=== PATIENT | male | born 1945 | race Caucasian/White ===

== ENCOUNTER → 2016-10-10 | Outpatient (CLI) | payer OTHER, MEDICARE ==
--- NOTE | 2016-10-10 09:49 | DX ---
Right Hand 3 Views History: Pain in the second metacarpal phalangeal joint. Injury September 19. Comparison: None available. Findings: No fractures identified. Alignment is normal. Bone mineralization is normal. There is no si gnificant degenerative change. There is no focal soft tissue swelling. Impression: No acute osseous findings.
== END ==
LOC: BMCIMAGING 09:17
PROVIDERS: ATTEND Family Medicine
DX: M79.641 Pain in right hand (principal)

== ENCOUNTER 2017-05-01 19:19 | Inpatient (IN) | payer OTHER, MEDICARE ==
[2017-05-01 19:57] LABS: % IMMATURE GRANULYOCYTES 0.4 % (0.0-1.1); ABSOLUTE IMMATURE GRANULOCYTES 0.03 10^3/uL (0.00-0.10); ADD DIFF? NO; ADD MORPH? NO; ADD SCAN? NO; ATYPICAL LYMPHOCYTE FLAG 10 (0-99); FRAGMENT RBC FLAG 0 (0-99); HEMATOCRIT 49.6 % (40.0-51.0); HEMOGLOBIN 16.7 g/dL (13.7-17.5); LEFT SHIFT FLG 0 (0-99); LIPEMIA HEMOLYSIS FLAG 80 (0-99); MEAN CELL HEMOGLOBIN 32.7 pg (27.9-34.1); MEAN CELL HEMOGLOBIN CONCENTR. 33.7 g/dL (32.4-36.7); MEAN CELL VOLUME 97.1 fL (81.5-99.8); MEAN PLATELET VOLUME 10.1 fL (8.7-11.7); PLATELET CLUMPS FLAG 0 (0-99); PLATELET COUNT 130 10^3/uL (150-400); RED BLOOD CELL COUNT 5.11 10^6/uL (4.40-6.38); RED CELL DISTRIBUTION WIDTH 14.3 % (11.5-15.2)
--- NOTE | 2017-05-01 19:59 | CPEKG ---
Heart Rate: 83 RR Interval: 723 P-R Interval: 228 QRSD Interval: 86 QT Interval: 392 QTC Interval: 461 P [place]: 0 QRS [place]: 63 T Wave [place]: 77 EKG Severity - ABNORMAL ECG - EKG Impression: SINUS RHYTHM EKG Impression: FIRST DEGREE AV BLOCK Electronically Signed By: Kevin Hastings 01-May-2017 22:41:12
[2017-05-01 20:07] LABS: INR 0.91 (0.83-1.16); PROTIME(PATIENT) 12.2 SEC (12.0-15.0)
[2017-05-01 20:08] LABS: APTT 29.2 SEC (23.0-38.0)
[2017-05-01 20:11] LABS: ALANINE AMINOTRANSFERASE 31 IU/L (21-72); ALBUMIN 4.5 g/dL (3.5-5.0); ALKALINE PHOSPHATASE 86 IU/L (38-126); ANION GAP 13 mEq/L (8-16); ASPARTATE AMINOTRANSFERASE 25 IU/L (17-59); BILIRUBIN,TOTAL 0.9 mg/dL (0.1-1.4); BILIRUBIN-CONJUGATED 0.3 mg/dL (0.0-0.5); BILIRUBIN-UNCONJUGATED 0.6 mg/dL (0.0-1.1); CALCIUM 9.8 mg/dL (8.5-10.4); CARBON DIOXIDE 26 mEq/l (22-31); CHLORIDE 100 mEq/L (97-110); CREATININE 1.5 mg/dL (0.7-1.3); GLOMERULAR FILTRATION RATE 46; GLUCOSE 91 mg/dL (70-100); MAGNESIUM 2.2 mg/dL (1.6-2.3); POTASSIUM 4.1 mEq/L (3.5-5.2); SODIUM 139 mEq/L (134-144); TOTAL PROTEIN 7.2 g/dL (6.3-8.2)
--- NOTE | 2017-05-01 20:15 | EDPHY ---
H & P Stated Complaint: mental status changes over the last 3 months, very emotional HPI/ROS: CHIEF COMPLAINT: Possible stroke HISTORY OF PRESENT ILLNESS: Patient complains of intermittent symptoms that include "mental lapse," difficulty thinking and speaking and difficulty performing is work tasks. These have happened intermittently over the past few days. Most recently this morning. They last 10-15 minutes and resolved spontaneously. During that time he has no headache but he does have some clouded train of thought and dizziness. He has not had any chest pain of any kind. No shortness of breath. No unilateral complaints. No reports of facial droop or slurred speech from those around him. No predictable modifying factors for this. No previous incidence of TIA or stroke. No previous incidence of coronary artery disease or hypertension. No other associated complaints or modifying factors. REVIEW OF SYSTEMS: Ten systems reviewed and are negative unless otherwise noted in the HPI PAST MEDICAL HISTORY: Reviewed SOCIAL HISTORY: Smoker. Drinks 2-3 alcoholic drinks per evening FAMILY HISTORY: Noncontributory EXAMINATION General Appearance: Alert, no distress Head: normocephalic, atraumatic Eyes: Pupils equal and round, no conjunctival pallor or injection. Bilateral arcus senilis. EOMs intact. No nystagmus or dysconjugate gaze ENT, Mouth: Mucous membranes moist. Uvula midline. Airway patent Neck: Normal inspection, supple, non-tender. Painless range of motion all planes Respiratory: Lungs are clear to auscultation. No wheezing, rhonchi or crackles Cardiovascular: Regular rate and rhythm. No murmur. Pulses intact distally Gastrointestinal: Abdomen is soft and nontender Back: non-tender, no bony abnormalities Neurological: GCS 15. Cranial nerves 2-12 grossly intact. A&O, nonfocal. Strength is symmetric in all 4 limbs. No pronator drift. No dysmetria. NIH stroke scale: 0 Skin: Warm and dry, no rash Extremities: Nontender, no pedal edema Psychiatric: Mood and affect normal DIFFERENTIAL DIAGNOSES: Including but not limited to TIA, CVA, tardive dyskinesia, dehydration, neuropathy MDM: 7:50 p.m. Mild, vague neuro complaints over the past few days. No stroke-like symptoms at time of examination. I have ordered CVA workup, but he is not a stroke alert as he has a negative stroke scale at this time. Vital signs are stable. Laboratory studies, CT scan, EKG and chest x-ray pending. I discussed case with Dr. Hastings he will evaluate the patient. 8:20 p.m. Notified by radiologist Dr. Rios. CT scan of the head reveals possible new left temporal mass with vasogenic edema. He recommends MRI without and with contrast for further delineation. This has been ordered. He remains awake alert no acute distress. No focal deficits. 8:30 p.m. Case discussed with neurosurgery RADHA Duncan. We discussed the presence of the mass in the the patient is obtaining MRI. No further question the patient at this time. He will review the images with the on-call neurosurgeon him return our call. 8:54 p.m. Case discussed again with neurosurgery RADHA Shoemaker. Dr. Montiel has reviewed the imaging. At this time they have ordered Decadron IV and Keppra to be administered IV. They will provide consultation for the patient hospital admission. No further recommendations at this time. He informed me that he is comfortable with the patient be admitted to a medical-surgical bed with telemetry. 9:50 p.m. Patient has returned from MRI. No seizure-like activity. No stroke-like activity. Proceed with admission to the hospital. He has received Keppra, Decadron and IV fluid resuscitation. 10:05 p.m. Notified by radiologist Dr. Rios. MRI findings suggest the possibility of transition from benign to metastatic process. Findings that were documented in the report have been reviewed. 10:20 p.m. I discussed the case again with neurosurgery RADAH Duncan. He is now where the MRI and findings. He informs that they will evaluate the patient 1st thing in the morning. 10:30 p.m. Discussed case with hospitalist Dr. Guillory. He will admit the patient to his service. The patient is admitted in stable condition. He is admitted to a medical-surgical bed with telemetry and q.4 hours neuro checks. At time of admission he has no neuro deficits. He has no seizure-like activity. He is resting comfortably in no acute distress. Patient is not a tPA candidate as he does not exhibit any signs or symptoms of stroke at this time. Stroke scale 0. SUPERVISION: Patient was evaluated in conjunction with the supervising physician. Please see their note for details. 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 - Social History Smoking Status: Heavy smoker Constitutional: Initial Vital Signs Temperature (C) 98.6 F 05/01/17 19:23 Heart Rate 92 05/01/17 19:23 Respiratory Rate 20 05/01/17 19:23 Blood Pressure 133/91 H 05/01/17 19:23 O2 Sat (%) 94 05/01/17 19:23 O2 Delivery Mode Room Air Allergies/Adverse Reactions: No Known Allergies Allergy (Unverified 03/13/11 21:28) Home Medications: Medication Instructions Recorded ALPRAZolam [Xanax 0.25 MG (*)] 0.125 mg PO DAILY PRN 01/02/16 Multivitamins [Multivitamin (*)] 1 tab PO DAILY 01/02/16 Psyllium Husk (with Sugar) 1 each PO DAILY 01/02/16 [Metamucil Packet] Budesonide/Formoterol 160/4.5 2 puffs IH BID #1 mdi 01/07/16 [Symbicort 160-4.5 Mcg Inh (*)] Medical Decision Making - Diagnostics Imaging Results: Imaging Impressions Chest X-Ray 05/01/17 19:43 Impression: 1. No acute pulmonary disease. 2. Consider chest two views when the patient's medical condition permits. Head CT 05/01/17 19:51 Impression: 1. Left temporal lobe vasogenic edema, with resulting rightward subfalcine herniation, midline shift, suspicious for a left temporal lobe neoplasm or metastasis. 2. Previous left temporal lobe meningioma is also subtly noted but is not the cause of the left temporal lobe vasogenic edema. 3. No acute hemorrhage or hydrocephalus. Recommendation: MRI brain, without and with contrast enhancement. Findings and recommendations discussed with Emergency Department Jamshid Prasad PA-C, at 2026 hours, on May 01, 2017. Final report concurs with initial preliminary interpretation. Brain MRI 05/01/17 20:23 Impression: 1. Left frontal temporal parasylvian extraaxial heterogenous enhancing 4.4- x 1.8- x 5-cm mass, with dural tail, causing left temporal lobe edema and rightward subfalcine herniation suspicious for malignant transformation of a meningioma. 2. Rightward subfalcine herniation 10 mm. 3. No acute infarct, acute hemorrhage, or hydrocephalus. 4. Moderate microvascular ischemic gliosis in the white matter. Findings and recommendations discussed with Emergency Department Jamshid Prasad PA-C, at 2213 hours, on May 01, 2017. Final report concurs with initial preliminary interpretation. - Data Points Laboratory Results: Laboratory Results 05/01/17 19:40 05/01/17 19:40 05/01/17 05/01/17 05/01/17 19:40 19:40 19:40 WBC 7.16 10^3/uL 10^3/uL (3.80-9.50) RBC 5.11 10^6/uL 10^6/uL (4.40-6.38) Hgb 16.7 g/dL g/dL (13.7-17.5) POC Hgb Hct 49.6 % % (40.0-51.0) POC Hct MCV 97.1 fL fL (81.5-99.8) MCH 32.7 pg pg (27.9-34.1) MCHC 33.7 g/dL g/dL (32.4-36.7) RDW 14.3 % % (11.5-15.2) Plt Count 130 10^3/uL L 10^3/uL (150-400) MPV 10.1 fL fL (8.7-11.7) Neut % (Auto) 50.3 % % (39.3-74.2) Lymph % (Auto) 32.1 % % (15.0-45.0) [place] % (Auto) 12.3 % % (4.5-13.0) Eos % (Auto) 4.1 % % (0.6-7.6) Baso % (Auto) 0.8 % % (0.3-1.7) Nucleat RBC Rel Count 0.0 % % (0.0-0.2) Absolute Neuts (auto) 3.60 10^3/uL 10^3/uL (1.70-6.50) Absolute Lymphs (auto) 2.30 10^3/uL 10^3/uL (1.00-3.00) Absolute Monos (auto) 0.88 10^3/uL H 10^3/uL (0.30-0.80) Absolute Eos (auto) 0.29 10^3/uL 10^3/uL (0.03-0.40) Absolute Basos (auto) 0.06 10^3/uL 10^3/uL (0.02-0.10) Absolute Nucleated RBC 0.00 10^3/uL 10^3/uL (0-0.01) Immature Gran % 0.4 % % (0.0-1.1) Immature Gran # 0.03 10^3/uL 10^3/uL (0.00-0.10) PT 12.2 SEC SEC (12.0-15.0) INR 0.91 (0.83-1.16) APTT 29.2 SEC SEC (23.0-38.0) POC Sodium Sodium 139 mEq/L mEq/L (134-144) POC Potassium Potassium 4.1 mEq/L mEq/L (3.5-5.2) POC Chloride Chloride 100 mEq/L mEq/L (97-110) Carbon Dioxide 26 mEq/l mEq/l (22-31) Anion Gap 13 mEq/L mEq/L (8-16) POC BUN BUN 17 mg/dL mg/dL (7-23) Creatinine 1.5 mg/dL H mg/dL (0.7-1.3) POC Creatinine Estimated GFR 46 Glucose 91 mg/dL mg/dL (70-100) POC Glucose Calcium 9.8 mg/dL mg/dL (8.5-10.4) Magnesium 2.2 mg/dL mg/dL (1.6-2.3) Total Bilirubin 0.9 mg/dL mg/dL (0.1-1.4) Conjugated Bilirubin 0.3 mg/dL mg/dL (0.0-0.5) Unconjugated Bilirubin 0.6 mg/dL mg/dL (0.0-1.1) AST 25 IU/L IU/L (17-59) ALT 31 IU/L IU/L (21-72) Alkaline Phosphatase 86 IU/L IU/L (38-126) Troponin I < 0.012 ng/mL ng/mL (0.000-0.034) NT-Pro-B Natriuret Pep 373 pg/mL H pg/mL (0-125) Total Protein 7.2 g/dL g/dL (6.3-8.2) Albumin 4.5 g/dL g/dL (3.5-5.0) Lipase 109 IU/L IU/L (23-300) 05/01/17 19:39 WBC RBC Hgb POC Hgb 17.7 gm/dL H gm/dL (13.7-17.5) Hct POC Hct 52 % H % (40-51) MCV MCH MCHC RDW Plt Count MPV Neut % (Auto) Lymph % (Auto) [place] % (Auto) Eos % (Auto) Baso % (Auto) Nucleat RBC Rel Count Absolute Neuts (auto) Absolute Lymphs (auto) Absolute Monos (auto) Absolute Eos (auto) Absolute Basos (auto) Absolute Nucleated RBC Immature Gran % Immature Gran # PT INR APTT POC Sodium 141 mEq/L mEq/L (134-144) Sodium POC Potassium 3.8 mEq/L mEq/L (3.3-5.0) Potassium POC Chloride 99 mEq/L mEq/L (97-110) Chloride Carbon Dioxide Anion Gap POC BUN 17 mg/dL mg/dL (7-23) BUN Creatinine POC Creatinine 1.6 mg/dL H mg/dL (0.7-1.3) Estimated GFR Glucose POC Glucose 96 mg/dL mg/dL (70-100) Calcium Magnesium Total Bilirubin Conjugated Bilirubin Unconjugated Bilirubin AST ALT Alkaline Phosphatase Troponin I NT-Pro-B Natriuret Pep Total Protein Albumin Lipase Medications Given: Dexamethasone (Decadron Injection) 4 mg IVP Q6 RIVKA Stop: 10/29/17 00:00 Last Admin: 05/02/17 00:07 Dose: 4 mg Discontinued Medications Dexamethasone (Decadron Injection) 10 mg IVP EDNOW ONE Stop: 05/01/17 20:35 Last Admin: 05/01/17 20:44 Dose: 10 mg Sodium Chloride (Ns) 1,000 mls @ 0 mls/hr IV ONCE ONE; Wide Open PRN Reason: Protocol Stop: 05/01/17 20:26 Last Admin: 05/01/17 20:31 Dose: 1,000 mls Levetiracetam 1,000 mg/ Sodium (Chloride) 110 mls @ 440 mls/hr IV EDNOW ONE Stop: 05/01/17 20:48 Last Admin: 05/01/17 20:45 Dose: 110 mls Levetiracetam 750 mg/ Sodium (Chloride) 107.5 mls @ 420 mls/hr IV BID RIVKA Stop: 10/28/17 20:59 Last Admin: 05/01/17 21:24 Dose: Not Given Nicotine (Nicoderm Cq) 21 mg TD ONCE ONE Stop: 05/02/17 00:16 Last Admin: 05/02/17 00:07 Dose: 21 mg Point of Care Test Results: 05/01/17 19:39 POC Sodium 141 POC Potassium 3.8 POC Chloride 99 POC BUN 17 POC Creatinine 1.6 H POC Glucose 96 Departure - Departure Disposition: [facility] Acute Clinical Impression: Mass of left temporal lobe, Mental status change resolved Condition: Good
[2017-05-01 20:22] LABS: TROPONIN I < 0.012 ng/mL (0.000-0.034)
[2017-05-01] MEDS ORDERED: NS 1,000 ML IV ONE (20:25)
[2017-05-01] MEDS ORDERED: levETIRAcetam 1,000 MG in NS 100 ML IV ONE (20:34)
[2017-05-01] MEDS ORDERED: DEXAMETHASONE 10 MG/ML VIAL IVP ONE (20:34)
[2017-05-01] MEDS ORDERED: levETIRAcetam 750 MG in NS 100 ML IV SCH (21:00)
[2017-05-01] MEDS ORDERED: GADOBUTROL 10 ML VIAL IVP ONE (21:08)
[2017-05-01] MEDS ORDERED: ACETAMINOPHEN 325 MG TAB PO PRN (23:02)
[2017-05-01] MEDS ORDERED: ONDANSETRON 4 MG/2 ML VIAL IVP PRN (23:02)
[2017-05-01] MEDS ORDERED: ONDANSETRON DISINTEGRATING 4 MG TAB PO PRN (23:02)
--- NOTE | 2017-05-01 23:13 | PDGENHP ---
History and Physical - Chief Complaint Forgetfulness - History of Present Illness 71 yo M w/ COPD and hx of anxiety presents with increasingly frequent episodes of forgetfulness. Patient reports he first noticed these episodes about 6 months ago. Over the last month, they have occurred 2-3x weekly. He describes the episodes as "anxiety attacks". During these spells, which are often triggered by j luis morel, he becomes forgetful and somewhat frozen. He has difficulty describing the episodes well. The reason he came to the ED for further evaluation was that his girlfriend noticed that he was dysarthric during one of these spells. On my evaluation, he has no persistent symptoms or deficits. He denies post-ictal confusion, shaking movements, and loss of bowel or bladder control during the events. History Information - Allergies/Home Medication List Allergies/Adverse Reactions: No Known Allergies Allergy (Unverified 03/13/11 21:28) Home Medications: ALPRAZolam [Xanax 0.25 MG (*)] 0.125 mg PO DAILY PRN 01/02/16 [Last Taken ] Multivitamins [Multivitamin (*)] 1 tab PO DAILY 01/02/16 [Last Taken 01/02/16 08 :00] Psyllium Husk (with Sugar) [Metamucil Packet] 1 each PO DAILY 01/02/16 [Last Taken 01/02/16 08:00] I have personally reviewed and updated: family history, medical history - Past Medical History COPD Additional medical history: Anxiety - Family History Additional family history: Denies family hx of brain cancer - Social History Smoking Status: Heavy smoker (1 PPD) Tobacco Use: Greater than 1 pack/day Alcohol Use: Other (3-4 drinks daily x50 years, denies prior hx of withdrawal) Drug Use: None Review of Systems ROS: 10pt was reviewed & negative except for what was stated in HPI & below Physical Exam Temp Pulse Resp BP Pulse Ox 36.9 C 72 18 147/82 H 94 05/01/17 22:53 05/01/17 22:53 05/01/17 22:53 05/01/17 22:53 05/01/17 22:53 Constitutional: no apparent distress, appears nourished Eyes: PERRL, EOMI Ears, Nose, Mouth, Throat: moist mucous membranes, no oral mucosal ulcers Cardiovascular: regular rate and rhythym, other (distant heart sounds) Respiratory: no respiratory distress, expiratory wheeze (Faint, diffuse) Gastrointestinal: normoactive bowel sounds, soft, non-tender abdomen Skin: warm, normal color Musculoskeletal: full muscle strength, no muscle tenderness Neurologic: AAOx3, sensation intact bilaterally, CN II-XII Intact, other ( cerebellar function intact), No weakness, No numbness, No facial droop Psychiatric: interacting appropriately, not anxious Lab Data & Imaging Review 05/01/17 19:40 05/01/17 19:40 WBC 7.16 10^3/uL (3.80-9.50) 05/01/17 19:40 RBC 5.11 10^6/uL (4.40-6.38) 05/01/17 19:40 Hgb 16.7 g/dL (13.7-17.5) 05/01/17 19:40 POC Hgb 17.7 gm/dL (13.7-17.5) H 05/01/17 19:39 Hct 49.6 % (40.0-51.0) 05/01/17 19:40 POC Hct 52 % (40-51) H 05/01/17 19:39 MCV 97.1 fL (81.5-99.8) 05/01/17 19:40 MCH 32.7 pg (27.9-34.1) 05/01/17 19:40 MCHC 33.7 g/dL (32.4-36.7) 05/01/17 19:40 RDW 14.3 % (11.5-15.2) 05/01/17 19:40 Plt Count 130 10^3/uL (150-400) L 05/01/17 19:40 MPV 10.1 fL (8.7-11.7) 05/01/17 19:40 Neut % (Auto) 50.3 % (39.3-74.2) 05/01/17 19:40 Lymph % (Auto) 32.1 % (15.0-45.0) 05/01/17 19:40 [place] % (Auto) 12.3 % (4.5-13.0) 05/01/17 19:40 Eos % (Auto) 4.1 % (0.6-7.6) 05/01/17 19:40 Baso % (Auto) 0.8 % (0.3-1.7) 05/01/17 19:40 Nucleat RBC Rel Count 0.0 % (0.0-0.2) 05/01/17 19:40 Absolute Neuts (auto) 3.60 10^3/uL (1.70-6.50) 05/01/17 19:40 Absolute Lymphs (auto) 2.30 10^3/uL (1.00-3.00) 05/01/17 19:40 Absolute Monos (auto) 0.88 10^3/uL (0.30-0.80) H 05/01/17 19:40 Absolute Eos (auto) 0.29 10^3/uL (0.03-0.40) 05/01/17 19:40 Absolute Basos (auto) 0.06 10^3/uL (0.02-0.10) 05/01/17 19:40 Absolute Nucleated RBC 0.00 10^3/uL (0-0.01) 05/01/17 19:40 Immature Gran % 0.4 % (0.0-1.1) 05/01/17 19:40 Immature Gran # 0.03 10^3/uL (0.00-0.10) 05/01/17 19:40 PT 12.2 SEC (12.0-15.0) 05/01/17 19:40 INR 0.91 (0.83-1.16) 05/01/17 19:40 APTT 29.2 SEC (23.0-38.0) 05/01/17 19:40 POC Sodium 141 mEq/L (134-144) 05/01/17 19:39 Sodium 139 mEq/L (134-144) 05/01/17 19:40 POC Potassium 3.8 mEq/L (3.3-5.0) 05/01/17 19:39 Potassium 4.1 mEq/L (3.5-5.2) 05/01/17 19:40 POC Chloride 99 mEq/L (97-110) 05/01/17 19:39 Chloride 100 mEq/L (97-110) 05/01/17 19:40 Carbon Dioxide 26 mEq/l (22-31) 05/01/17 19:40 Anion Gap 13 mEq/L (8-16) 05/01/17 19:40 POC BUN 17 mg/dL (7-23) 05/01/17 19:39 BUN 17 mg/dL (7-23) 05/01/17 19:40 Creatinine 1.5 mg/dL (0.7-1.3) H 05/01/17 19:40 POC Creatinine 1.6 mg/dL (0.7-1.3) H 05/01/17 19:39 Estimated GFR 46 05/01/17 19:40 Glucose 91 mg/dL (70-100) 05/01/17 19:40 POC Glucose 96 mg/dL (70-100) 05/01/17 19:39 Calcium 9.8 mg/dL (8.5-10.4) 05/01/17 19:40 Magnesium 2.2 mg/dL (1.6-2.3) 05/01/17 19:40 Total Bilirubin 0.9 mg/dL (0.1-1.4) 05/01/17 19:40 Conjugated Bilirubin 0.3 mg/dL (0.0-0.5) 05/01/17 19:40 Unconjugated Bilirubin 0.6 mg/dL (0.0-1.1) 05/01/17 19:40 AST 25 IU/L (17-59) 05/01/17 19:40 ALT 31 IU/L (21-72) 05/01/17 19:40 Alkaline Phosphatase 86 IU/L (38-126) 05/01/17 19:40 Troponin I < 0.012 ng/mL (0.000-0.034) 05/01/17 19:40 NT-Pro-B Natriuret Pep 373 pg/mL (0-125) H 05/01/17 19:40 Total Protein 7.2 g/dL (6.3-8.2) 05/01/17 19:40 Albumin 4.5 g/dL (3.5-5.0) 05/01/17 19:40 Lipase 109 IU/L (23-300) 05/01/17 19:40 Imaging Review: Brain MRI w/ L frontal, temporal mass with associated edema and herniation. Visualized and Interpreted Chest x-ray results: Yes Chest X-Ray results: no infiltrate EKG Interpretation: Positive for: normal sinsus rhythm Assessment & Plan Assessment: 71 yo M w/ COPD and hx of anxiety presents with spells of forgetfulness and found to have progression of L frontal meningioma on imaging. Plan: 1. L frontal, temporal mass - With cerebral edema and herniation noted on brain MRI. Per radiology, suspicious for malignant transformation of known meningioma. Unclear if this is responsible for presenting symptoms, but definitely possible. Unremarkable neurologic exam on admission. - S/p dexamethasone and Keppra in ED - Continue dexamethasone 4 mg IV q6h and Keppra 750 mg IV q12h - Neurosurgery consulted, will evaluate patient in the morning - q4h neuro checks, NPO @ [place] 2. Episodes of forgetfulness - Could be consistent with TIA's noting dysarthria noted by girlfriend during one of these episodes. However, this seems less likely noting episodes have been occurring for >6 months without residual neurologic deficits or clear evidence of prior stroke on MRI. These episodes could be consistent with focal temporal lobe seizures noting above. - Acute management of mass as above - Monitor on telemetry, may benefit from full TIA work-up after management of acute issue 3. COPD - Faint wheezing noted on admission but no evidence of acute exacerbation. Patient is a heavy daily smoker. Albuterol PRN 4. Tobacco dependence - 1 PPD x50 years; will order nicotine patch 5. ETOH abuse - 3-4 drinks daily for 50 years, no hx of withdrawal. Diet - NPO @ [place] Ppx - SCDs noting possible surgical intervention Code - Full Dispo - Admit to inpatient for neurosurgical evaluation
[2017-05-01 23:20] VITALS: TEMP 97.9
[2017-05-02] MEDS: DEXAMETHASONE 4 MG/ML VIAL IVP SCH ×2 (00:07→05:58)
[2017-05-02] MEDS ORDERED: NICOTINE 21 MG/24 HR PATCH TD ONE (00:15)
[2017-05-02 04:54] LABS: % IMMATURE GRANULYOCYTES 0.6 % (0.0-1.1); ABSOLUTE IMMATURE GRANULOCYTES 0.02 10^3/uL (0.00-0.10); ADD DIFF? NO; ADD MORPH? NO; ADD SCAN? NO; ATYPICAL LYMPHOCYTE FLAG 0 (0-99); FRAGMENT RBC FLAG 0 (0-99); HEMOGLOBIN 15.9 g/dL (13.7-17.5); LEFT SHIFT FLG 10 (0-99); LIPEMIA HEMOLYSIS FLAG 90 (0-99); MEAN CELL HEMOGLOBIN 32.6 pg (27.9-34.1); MEAN CELL HEMOGLOBIN CONCENTR. 33.8 g/dL (32.4-36.7); MEAN CELL VOLUME 96.5 fL (81.5-99.8); MEAN PLATELET VOLUME 9.7 fL (8.7-11.7); PLATELET CLUMPS FLAG 10 (0-99); PLATELET COUNT 116 10^3/uL (150-400); RED BLOOD CELL COUNT 4.87 10^6/uL (4.40-6.38); RED CELL DISTRIBUTION WIDTH 14.1 % (11.5-15.2)
[2017-05-02 05:40] LABS: ANION GAP 11 mEq/L (8-16); CARBON DIOXIDE 23 mEq/l (22-31); CHLORIDE 106 mEq/L (97-110); CREATININE 1.2 mg/dL (0.7-1.3); GLOMERULAR FILTRATION RATE 60; GLUCOSE 137 mg/dL (70-100); MAGNESIUM 1.9 mg/dL (1.6-2.3); POTASSIUM 4.7 mEq/L (3.5-5.2); SODIUM 140 mEq/L (134-144)
[2017-05-02 07:35] VITALS: BP 149/97; PULSE 96; RESP 23; O2SAT 93
[2017-05-02] MEDS ORDERED: ALPRAZolam 0.25 MG TAB PO PRN (07:45)
[2017-05-02] MEDS ORDERED: TRIAMCINOLONE 0.1% 15 GM CRTUBE TP PRN (07:45)
[2017-05-02] MEDS ORDERED: FLUTICASONE/SALMETER 250/50MCG DISKUS IH PRN (07:45)
[2017-05-02] MEDS ORDERED: FLUOCINONIDE 0.05% 15 GM OINTMENT TP PRN (07:45)
--- NOTE | 2017-05-02 08:50 | HOSPPROG ---
Hospitalist Progress Note Assessment/Plan: Patient is a 71 yo M w/ COPD and hx of anxiety presents with spells of forgetfulness and found to have progression of L frontal meningioma on imaging. * left frontal temporal mass/hx of this Has some cerebral edema and herniation on the MRI Met with the patient with Dr. 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 Subjective: Lenard is anxious/wants a cigarette. Objective: Vital Signs Temp Pulse Resp BP Pulse Ox 36.6 C 96 23 H 149/97 H 93 05/02/17 07:30 05/02/17 07:30 05/02/17 07:30 05/02/17 07:30 05/02/17 07:30 Laboratory Results 05/02/17 04:30 05/02/17 04:30 05/01/17 05/02/17 05/03/17 05:59 05:59 05:59 Intake Total 1000 Output Total 400 Balance 600 PT 12.2 SEC (12.0-15.0) 05/01/17 19:40 INR 0.91 (0.83-1.16) 05/01/17 19:40 - Physical Exam Constitutional: appears nourished, not in pain Eyes: PERRL, scleral injection Ears, Nose, Mouth, Throat: hearing normal Cardiovascular: regular rate and rhythym Respiratory: no respiratory distress, reduced air movement Gastrointestinal: normoactive bowel sounds Skin: warm Musculoskeletal: full muscle strength Neurologic: AAOx3, other (impulsive) Psychiatric: interacting appropriately, anxious ICD10 Worksheet Patient Problems: Problems Problem Status Onset Mass of left temporal lobe Acute Mental status change resolved Acute COPD (chronic obstructive pulmonary disease) Acute Chronic Disease Mgmt/Transitional Care Acute
[2017-05-02] MEDS ORDERED: NICOTINE 21 MG/24 HR PATCH TD SCH (09:00)
[2017-05-02] MEDS ORDERED: MULTIVITAMINS 1 EACH TAB PO SCH (09:00)
[2017-05-02] MEDS ORDERED: PSYLLIUM METAMUCIL 1 PKT PO SCH (09:00)
[2017-05-02] MEDS: levETIRAcetam 750 MG in NS 100 ML IV SCH ×2 (09:22→10:34)
--- NOTE | 2017-05-02 09:28 | GCON ---
[f rep st] CONSULTATION NEUROSURGERY CONSULTATION CHIEF COMPLAINT: Brain mass and episodes of confusion. HISTORY OF PRESENT ILLNESS: The patient is a 71-year-old male patient, who presented to the emergency room yesterday evening, he complained of intermittent symptoms, included a mental lapse, with difficulty thinking and speaking. He states if he has heard a news story on the radio and then hears it a second time, he has this episode of j luis vu that comes over him, and he states he does not exactly blank, out but he is unable to think clearly. These events have lasted for about 10-15 minutes and resolve spontaneously. It recently happened to him in a restaurant, and he states he had to get up suddenly and leave because he was embarrassed, he did, however, remember to pay the bill. Currently, the patient is resting in bed. He denies a headache. He has had some severe left ear drum pain, that he had approximately 3 years ago. He has had some recurrence of this, but it is currently not present. He denies any shortness of breath, nausea, vomiting. No slurred speech. He states he does not believe he has had any seizures. After admission to the emergency room, the patient underwent a CT of the head, which demonstrated some vasogenic edema in the left temporal lobe with midline shift. This is compared to an MRI from 2012, where he had a known left temporal lobe meningioma. He then underwent MRI of the brain without contrast, which was suspicious for a malignant transformation of his prior known meningioma. He was subsequently admitted to the hospitalist service for further workup. He was given antiseizure medication and steroids. The neurosurgery service is subsequently consulted for definitive management. REVIEW OF SYSTEMS: Please see the above-mentioned in the HPI. ALLERGIES: Patient has no known drug allergies. HOME MEDICATIONS: Include Xanax, multivitamin, and Metamucil. PAST MEDICAL HISTORY: Significant for COPD. FAMILY HISTORY: The patient is the youngest of 9 siblings, he states that many of his siblings have had various illnesses, he also reports that he has a nephew who had some type of brain mass, it sounds like it was near the optic chiasm and was resected. SOCIAL HISTORY: The patient is a heavy smoker, smokes about 1 pack per day. He states he has cocktail hour every evening from 5:30 to 7:30, but denies heavy drinking. 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 PHYSICAL EXAMINATION: VITAL SIGNS: Blood pressure 149/97, heart rate 96, respirations 23, O2 saturation 93% on 2 L of oxygen via nasal cannula, temperature is 36.6. GENERAL: This is a well-developed, well-nourished male patient, in no acute distress. HEAD: Normocephalic and atraumatic. NEURO: Cranial nerves 2-12 were grossly intact. Patient's eyes are PERRLA. His extraocular movements are intact. Sclerae are anicteric. He has intact sensation of his face, his facial movements are symmetric without facial droop noted. His tongue protrudes midline. He has intact hearing to light finger scratch bilaterally. He has a symmetric shoulder shrug bilaterally. Motor examination of bilateral extremities is 5/5 for deltoid, triceps, biceps, and hand supervising broker, and also 5/5 for bilateral lower extremities, including hip flexion , flexion of the knee, plantar and dorsiflexion. He has 2+ bilateral patellar reflexes. Negative Babinski. He has intact sensation throughout the normal dermatomal distribution of his body. Of note, during our conversation he did have a few missed consonance in his speech, for example when he tried to say [facility], he said [facility]. LABORATORY: White blood cell is 3.20, red blood cells 4.87, hemoglobin 15.9, hematocrit 47.0, MCV is 96, MCH is 32.6, RDW is 14.1, platelet count 116. PT 12.2, INR 0.91, APTT is 29.2. Sodium is 140, potassium 4.7, chloride 106, carbon dioxide 23, anion gap 11, BUN 16, creatinine 1.2. GFR 60, glucose 137, calcium 9.0, phosphorus 3.4, magnesium 1.9. Bilirubin 0.9, conjugated bilirubin 0.3, unconjugated 0.6, AST is 25, ALT is 31, alk phos is 86. Troponin less than 0.012. BNP is 3073. Total protein 7.2, albumin 4.5, lipase 109. IMAGING: Chest x-ray: No acute pulmonary disease. Electrocardiogram: Sinus rhythm with first-degree AV block. Head CT: Left temporal lobe vasogenic edema with resulting rightward subfalcine herniation, midline shift, suspicious for left a temporal lobe neoplasm or metastasis. Previous left temporal lobe meningioma is also subtly noted, but is not the cause of the left temporal lobe vasogenic edema. No acute hemorrhage or hydrocephalus. MRI of the brain: Left frontal temporal perisylvian extra-axial heterogeneous enhancing 4.4 x 1.8 x 5 cm mass with dural tail, causing left temporal lobe edema and rightward subfalcine herniation, suspicious for malignant transformation of meningioma, rightward subfalcine herniation 10 mm. No acute infarct, acute hemorrhage, or hydrocephalus, moderate microvascular ischemic gliosis in the white matter. IMPRESSION: This is a 71-year-old male patient with known prior left temporal meningioma, now with worsening edema and shift noted on the MRI. He has had some confusion associated with this as well. PLAN: I have seen and examined the patient in his room today, and we will discuss the patient with Dr. Montiel, who will be in to see the patient in a few hours, today. I discussed with the patient that we have placed him on Keppra and also some Decadron to help with the swelling and reduce the likelihood of him having a seizure. I discussed with them that typically the definitive management for this would be resection and analysis of the tumor tissue, and this will guide further treatment. The patient states he would like to think about his options some more, and await discussion with Dr. Montiel later today before he makes a decision. The patient was in agreement and understanding of the plan and all of his questions were answered. Neurosurgery will continue to follow along with this patient. /[id number]/MODL MTDD
[2017-05-02] MEDS ORDERED: levETIRAcetam 250 MG TAB PO SCH (11:15)
[2017-05-02] MEDS ORDERED: DEXAMETHASONE 4 MG TAB PO SCH (12:00)
--- NOTE | 2017-05-02 12:15 | ECHO ---
[id number] + + [address] : : [place] [address] : : [phone] + + Adult Echocardiographic Report + + :Name: MINDI HUTSON MStudy Date: 05/02/2017 10:23 AM : : Hospital Admission Number: [id number] Loc ation: 347: :: 1945 Gender: Male Height: 73 in : :Age: 71 yrs Race: WH Weight: 179 lb : :Reason For Study: Eval LV Fx : : BSA: 2.1 me ters2 : :History: Pre Op Brain Surgery, Hx of COPD, Dyspnea : + + MMode/2D Measurements \T\ Calculations IVSd: 1.1 cm LVIDd: 4.9 cm FS: 41.1 % Ao root diam: 3.2 cm LVPWd: 1.4 cm LVIDs: 2.9 cm EDV(Teich): 110.5 ml ACS: 1.6 cm ESV(Teich): 31.2 ml EF(Teich): 71.8 % Normal Measurement Values: + + :LVIDd (3.5-5.7cm) IVSd (0.6-1.1cm) LVPWd (0.6-1.1cm) Aortic Root (2.0-3.7cm)Left Atrium (1.5-4.0cm): :LV Vol(d) (76-115ml) LV Vol(s) (29-48ml) Ejec Fraction (50-65%)PV Too (0.6- 1.2m/s) TV Too (0.4-1.0m/s) : :MV E Too (0.8-1.0m/s)MV A Too (0.3-1.0m/s)LVOT Too (0.7-1.2m/s) Asc Ao Too ( 0.9-1.8m/s) : + + Doppler Measurements \T\ Calculations MV E max too: 107.6 cm/sec Ao V2 max: 153.4 cm/sec LV V1 max: 54.8 cm/sec MV A max too: 58.7 cm/sec Ao max P.4 mmHg LV V1 max P.2 mmHg MV E/A: 1.8 Left Ventricle The left ventricle is normal in size. There is normal left ventricular wall thickness. The left ventricular ejection fraction is normal. Tachycardia. The left ventricle is hyperdynamic. Ejection Fraction = 72%. No regional wall motion abnormalities noted. Right Ventricle The right ventricle is normal in size and function. Atria The left atrial size is normal. Right atrial size is normal. Mitral Valve The mitral valve is normal in structure and function. There is no evidence of mitral valve prolapse. There is no mitral valve stenosis. There is no mitral regurgitation noted. Tricuspid Valve Normal tricuspid valve. No tricuspid regurgitation. Aortic Valve The aortic valve opens well. There is no aortic stenosis. There is no aortic insufficiency. Pulmonic Valve The pulmonic valve is normal in structure and function. There is no pulmonic valvular regurgitation. Great Vessels The aortic root is normal size. Pericardium/Pleural trivial pericardial effusion. Conclusion A complete two-dimensional transthoracic echocardiogram was performed (2D, M-mode, Doppler and color flow Doppler). The left ventricular ejection fraction is normal. Tachycardia The left ventricle is hyperdynamic. Ejection Fraction = 72%. The right ventricle is normal in size and function. The left atrial size is normal. The mitral valve is normal in structure and function. The aortic valve opens well. The aortic root is normal size. trivial pericardial effusion. No significant change compared with 01/06/2016 Final Reading Physician: Dr Kinsey Crespo electronically signed on 05/02/2017 12:14 PM Ordering Physician: Herminia Long Performed By: Jas Gasca, JULIOCS
--- NOTE | 2017-05-02 12:28 | GDS ---
[f rep st] DISCHARGE SUMMARY DISCHARGE DIAGNOSES: 1. Left frontal temporal mass with cerebral edema and mild herniation. 2. Chronic obstructive pulmonary disease. 3. Alcohol use. CONSULTATIONS: Elodia Reece, physician expanded function dental assistant, with Dr. Montiel. HISTORY: The patient is a 71-year-old male, who presented to the emergency room yesterday evening, who had symptoms of mental lapse and difficulty thinking and speaking. He also has episodes of j luis vu. He had a CT of the head, which demonstrated some vasogenic edema in the left temporal lobe with midline shift. He also underwent MRI of the brain, which was suspicious for malignant transformation of his prior known meningioma. He was admitted and was treated with IV steroids and IV Keppra. I evaluated the patient with Dr. Montiel today. 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 The plan is for him to get surgery in approximately a week and a half. He will be discharged home. I have told him he cannot drive out of concern of developing possible seizures. I also recommended that he not travel until he does indeed get surgery. HOSPITAL COURSE: 1. Left frontal temporal mass with associated cerebral edema and herniation. The plan is to do surgery next week. He will be placed on Keppra b.i.d. and Decadron q.6 hours. His niece is his medical power of tax associate attorney. She will be involved with his care, and keep an eye on him until he gets surgery in approximately a week. 2. COPD. No acute exacerbation. 3. Alcohol use. He admits to 3-4 drinks a day. I reviewed with him and his niece my concern of effecting his clotting factors, as well as withdrawal symptoms. He is very motivated over the next week and a half to cut back from 3 -4 drinks to 1 drink an evening. I have recommended that he do this slowly. He is agreeable with this. PENDING LABS: Final echo report is pending. Preliminary report shows a stable ejection fraction. CONDITION AT DISCHARGE: Stable. Blood pressure is 149/97, O2 sat on room air 93%, respiratory rate is 23, pulse is 96, temperature 36.6 Celsius. MEDICATIONS AT DISCHARGE: Please see the EMR. DISCHARGE INSTRUCTIONS: 1. To see Dr. Haimes, sooner than later, for followup care. 2. His cardiac risk index is low. 3. Do not drive. 4. If he develops any worsening signs or symptoms of amnesia, or confusion, or j luis vu, to return to the ER immediately. Greater than 30 minutes caring and counseling the patient. /[id number]/MODL MTDD
== END 2017-05-02 11:45 | disposition home or self-care (01) | DRG 54 ==
LOC: F3N 23:03
PROVIDERS: ADMIT Student in an Organized Health Care Education/Training Program; ATTEND Student in an Organized Health Care Education/Training Program
DX: D32.0 Benign neoplasm of cerebral meninges (principal); G93.6 Cerebral edema; G93.5 Compression of brain; J44.1 Chronic obstructive pulmonary disease with (acute) exacerbation; F17.210 Nicotine dependence, cigarettes, uncomplicated; F10.10 Alcohol abuse, uncomplicated
CPT/HCPCS: 82947-QW; 96374; A9585; J1100; J1953

== ENCOUNTER 2017-05-12 06:01 | Inpatient (IN) | payer OTHER, MEDICARE ==
[~2017-05-12 06:01] MED LIST: ACETAMINOPHEN 500 MG TAB PO ONE; GABAPENTIN 300 MG CAP PO ONE; ceFAZolin 2 GM/DEXTROSE 100 ML IV ONE; morphINE SR 15 MG TAB PO ONE
[2017-05-12] MEDS ORDERED: GADOBUTROL 10 ML VIAL IVP ONE (06:12)
[2017-05-12] MEDS ORDERED: LR 1,000 ML IV ONE (06:24)
[2017-05-12] MEDS ORDERED: LIDOCAINE 1% 2 ML INJ ID PRN (06:24)
[2017-05-12] MEDS ORDERED: GABAPENTIN 300 MG CAP PO ONE (07:00)
[2017-05-12] MEDS ORDERED: ceFAZolin 2 GM/DEXTROSE 100 ML IV ONE (07:00)
[2017-05-12] MEDS ORDERED: ACETAMINOPHEN 500 MG TAB PO ONE (07:00)
[2017-05-12] MEDS ORDERED: morphINE SR 15 MG TAB PO ONE (07:00)
[2017-05-12] MEDS ORDERED: BACITRACIN ZINC 14.2 GM OINTTUBE TP ONE (07:05)
[2017-05-12] MEDS ORDERED: MANNITOL 20% 100 GM/500 ML BAG IV ONE (07:05)
[2017-05-12] MEDS ORDERED: THROMBIN (BOVINE) 20,000 UNIT VIAL TP ONE ×2 (07:05→11:38)
[2017-05-12] MEDS ORDERED: BUPIVACAINE 0.25% 30 ML SDV ONE (07:05)
[2017-05-12] MEDS ORDERED: HYDROGEN PEROXIDE 236 ML BOTTLE TP ONE (07:06)
[2017-05-12] MEDS ORDERED: MIDAZOLAM 2 MG/2 ML VIAL IVP ONE (07:06)
[2017-05-12] MEDS ORDERED: GENTAMICIN SULFATE 80 MG/2 ML VIAL ONE (07:06)
[2017-05-12] MEDS ORDERED: AVITENE POWDER 1 GM JAR TP ONE (07:06)
--- NOTE | 2017-05-12 07:06 | PDANEPAE ---
ANE Past Medical History - Cardiovascular History Hx Hypertension: No Hx Arrhythmias: No Hx Chest Pain: No Hx Coronary Artery / Peripheral Vascular Disease: No Hx CHF / Valvular Disease: No Hx Palpitations: No - Pulmonary History Hx COPD: Yes Hx Asthma/Reactive Airway Disease: No Hx Recent Upper Respiratory Infection: No Hx Oxygen in Use at Home: No Hx Sleep Apnea: No Sleep Apnea Screening Result - Last Documented: Positive Pulmonary History Comment: miriam triggers. instructed pt to bring inhalers. 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 hx of rashes over the last two yrs but they are healed now, back chest and legs - Chronic Pain History Chronic Pain: No - Surgical History Prior Surgeries: melanoma removal basal cell ANE Review of Systems - Exercise capacity METS (RN): 4 METS ANE Patient History - Allergies Allergies/Adverse Reactions: No Known Allergies Allergy (Verified 05/09/17 14:13) - Home Medications Home Medications: ALPRAZolam [Xanax 0.25 MG (*)] 0.125 mg PO HS PRN 01/02/16 [Last Taken 05/09/17] Multivitamins [Multivitamin (*)] 1 tab PO DAILY 01/02/16 [Last Taken 05/05/17] Psyllium Husk (with Sugar) [Metamucil Packet] 1 each PO DAILY 01/02/16 [Last Taken 05/05/17] Fluocinonide 0.05% [Lidex 0.05% Ointment] 1 simon TP DAILY PRN 05/02/17 [Last Taken 04/14/17] Fluticasone/Salmeter 250/50Mcg [Advair 250/50 (*)] 1 puffs IH DAILY PRN [Last Taken 05/11/17 23:00] Triamcinolone 0.1% [Triamcinolone 0.1% Cream (*)] 1 simon TP DAILY PRN 05/02/17 [ Last Taken 04/14/17] - NPO status NPO Since - Liquids (Date): 05/12/17 NPO Since - Liquids (Time): 03:45 NPO Since - Solids (Date): 05/11/17 NPO Since - Solids (Time): 20:00 - Smoking Hx Smoking Status: Heavy smoker - Family Anes Hx Family Hx Anesthesia Complications: none ANE Labs/Vital Signs - Vital Signs Blood Pressure: 132/89 Heart Rate: 75 Respiratory Rate: 16 O2 Sat (%): 96 Height: 185.42 cm Weight: 81.64 kg ANE Physical Exam - Airway Neck exam: FROM Mallampati Score: Class 2 Mouth exam: normal dental/mouth exam - Pulmonary Pulmonary: no respiratory distress - Cardiovascular Cardiovascular: regular rate and rhythym - ASA Status ASA Status: III ANE Anesthesia Plan Anesthesia Plan: general endotracheal anesthesia Lines/Monitors: arterial line
--- NOTE | 2017-05-12 07:49 | PDHPUP ---
History & Physical Update H&P update statement: This history and physical update is based on an assessment of the patient which was completed after admission or registration (within 24 hours), but prior to the surgery/procedure. H&P update: H&P reviewed & patient examined, no change in patient's condition since H&P completed (Plan for left sided crani for tumor resection. Reviewed again his risk of stroke, speech difficulties, and incomplete resection depending on tumor appearance and pathology. Consents signed and site marked.)
[2017-05-12] MEDS ORDERED: SURGIFLO MATRIX KIT WITH THROMBIN TP ONE (07:52)
[2017-05-12] MEDS ORDERED: PROPOFOL/EMULSION 500 MG/50 ML BOTTLE IV ONE (07:55)
[2017-05-12] MEDS ORDERED: fentaNYL 100 MCG/2 ML INJ ONE ×4 (07:58→12:14)
[2017-05-12] MEDS ORDERED: DEXAMETHASONE 4 MG/ML VIAL ONE ×3 (08:55)
[2017-05-12] MEDS ORDERED: ROCURONIUM 100 MG/10 ML VIAL ONE (10:34)
[2017-05-12] MEDS ORDERED: epHEDrine SULFATE 10 MG/ML SYR ONE ×2 (10:34)
[2017-05-12] MEDS ORDERED: ONDANSETRON 4 MG/2 ML VIAL ONE (12:14)
[2017-05-12] MEDS ORDERED: niCARdipine/NACL/200 ML BAG IV ONE (12:47)
[2017-05-12] MEDS ORDERED: ONDANSETRON 4 MG/2 ML VIAL IVP PRN (13:05)
[2017-05-12] MEDS ORDERED: fentaNYL 100 MCG/2 ML INJ IVP PRN (13:05)
[2017-05-12] MEDS ORDERED: NALOXONE HCL 0.4 MG/ML INJ ONE (13:55)
[2017-05-12] MEDS: NALOXONE HCL 0.4 MG/ML INJ IVP PRN ×2 (13:58→14:45)
[2017-05-12] MEDS: niCARdipine/NACL 200 ML IV SCH ×2 (14:03→16:50)
[2017-05-12] MEDS ORDERED: LACTULOSE 20 GM/30 ML UDCUP PO PRN (15:14)
[2017-05-12] MEDS ORDERED: BISACODYL 10 MG SUPP PR PRN (15:14)
[2017-05-12] MEDS ORDERED: POLYETHYLENE GLYCOL 3350 17 GM PKT PO PRN (15:14)
[2017-05-12] MEDS ORDERED: MAGNESIUM HYDROXIDE 30 ML UDCUP PO PRN (15:14)
[2017-05-12] MEDS ORDERED: ACETAMINOPHEN 325 MG TAB PO PRN (15:14)
[2017-05-12] MEDS ORDERED: diphenhydrAMINE 25 MG CAP PO PRN (15:14)
[2017-05-12] MEDS ORDERED: ALPRAZolam 0.25 MG TAB PO PRN (15:17)
[2017-05-12] MEDS ORDERED: TRIAMCINOLONE 0.1% 15 GM CRTUBE TP PRN (15:17)
[2017-05-12] MEDS ORDERED: FLUOCINONIDE 0.05% 15 GM OINTMENT TP PRN (15:17)
[2017-05-12] MEDS ORDERED: FLUTICASONE/SALMETER 250/50MCG DISKUS IH PRN (15:17)
[2017-05-12] MEDS: NS W/ 20 KCl/L 1,000 ML IV SCH (16:55)
--- NOTE | 2017-05-12 17:00 | POSTOPPROG ---
Post Op Note Date of Operation: 05/12/17 Surgeon: Srinivas Montiel Rotary Driller: Meghann Anesthesia: GET(General Endotracheal) Pre-op Diagnosis: left sided Brain mass Post-op Diagnosis: left sided brain mass Indication: left sided paola mass Procedure: left sided craniotomy for mass debulking. Inf/Abcess present in the surg proc area at time of surgery?: No EBL: 250 Drains: Jean Casas Addendum - Addendum .: S: Unable to obtain O: Pupils pin point, will follow simple commands in all 4 extremities, will grunt, but not verbalizing otherwise. Dressing c/d/i. LEONIDES drain sanguinous 71y/o male s/p left sided craniotomy for mass debulking. - Continue Keppra - Continue Decadron - Post op MRI in the am - SBP goal 90-140 - Patient was seen by Dr. Montiel and myself. Discussed with Dr. Yuen ( critical care) the patient level of sleepiness, he will monitor him closely and administer more narcan if needed. Patient did receive 3 dose in the PACU
--- NOTE | 2017-05-12 17:53 | GOP ---
[f rep st] OPERATIVE REPORT DATE OF OPERATION: 05/12/2017 SURGEON: Srinivas Montiel MD CONDUIT CLEANER: KENYA Stiles ANESTHESIA: General. PREOPERATIVE DIAGNOSIS: Left frontotemporal lesion with neurological deficits, including speech difficulties. POSTOPERATIVE DIAGNOSIS: Left frontotemporal lesion with neurological deficits , including speech difficulties. PROCEDURE PERFORMED: 1. Frontotemporal craniotomy with open biopsy and Ellison Grade 2 tumor resection. 2. Use of intraoperative 3D Stealth navigation. 3. Use of the operating microscope. 4. Use of intraoperative neuromonitoring. FINDINGS: adherent dural based lesion SPECIMENS: Tumor was sent to Pathology for frozen analysis. The remainder of the tumor was also sent for permanent specimen and came back consistent with a meningioma. ESTIMATED BLOOD LOSS: 200 mL. INDICATIONS: The patient presented to the hospital with speech difficulties. He had a known lesion on the left cortical surface of his brain, which had not been followed for several years. Imaging demonstrated that this lesion had become much more aggressive with midline shift and mass effect. The patient now presents for surgical intervention given his neurological deficits. We had an extensive conversation about the location of the tumor and possibility of stroke, worsening speech deficits temporarily if not permanently. The patient wished to proceed forth with surgical intervention. He presents now for that surgery. DESCRIPTION OF PROCEDURE: Patient was brought to the operating theater and underwent general endotracheal anesthesia without complications. He has Venodynes, JAMES hose, and the appropriate lines placed by Anesthesia. His head was placed in the Kurtz llanes device and turned to the right side to expose the left frontotemporal aspect of his scalp. The patient's scalp was then merged to the 3D Stealth navigation system. Using 3D Stealth navigation, we then picked our entry point that gave us the best access to the anterior, posterior, superior, and inferior aspects of the mass. This was marked out as a frontotemporal craniotomy incision in a curvilinear manner. This area was prepped and draped in the usual sterile surgical fashion. A time-out was completed per protocol and the patient was hyperventilated, received steroids, mannitol, and antiseizure medications. The incision was infiltrated with Marcaine with epinephrine and taken down with the scalpel blade. Using the monopolar, the incision was taken down through subcutaneous tissues and the temporalis muscle and fascia. The entire frontotemporal area then reflected anteriorly and held out of the way with fishhooks attached to a Siomara bar. At this point, we used the 3D [employer] navigation system to again trina out the anterior, superior, inferior aspects of this sphenoid wing meningioma. This was marked out and the sky cap drill utilized to place 3 bur holes, 1 over the temporal lobe and 2 over the frontal lobe. The dural tissues were stripped from the underlying surface of the calvarium. Using the foot plate, we turned a frontotemporal craniotomy bone flap which was then passed off the field. We then used the bur tip and Leksell rongeur to take down the remainder of the sphenoid wing. At this point, we confirmed the location of the tumor using the navigation system. We used the dural pickups and scissors and circumferentially resected the posterior superior aspect of the dura around the tumor. The tumor was noted to be extremely adherent to the cortical tissues and vasculature. The microscope was brought into the field to assist with microscopic dissection and to maintain illumination and magnification. Using very careful microsurgical technique, including the CUSA, we then used bipolar cautery as well as micro scissors and had to cut the tumor millimeter by millimeter from the cortical surface which it had invaded. We preserved all the superficial cortical veins and arteries during the resection. The plane to identify the brain tissue versus a tumor was extremely difficult. More anteriorly, we had to leave a little bit of tumor attached to the superficial middle cerebral vein and artery for fear of injuring these vasculatures causing a stroke. We coagulated any residual tumor. We then continued anteriorly underneath the sphenoid wing and into the anterior aspect of the middle temporal fossa and coagulated and cut the dura as much as possible. Once we felt that we had a very good resection of the area, we sent a small piece to Pathology for frozen analysis, which came back consistent with a meningioma. We achieved a Ellison grade 2 resection of the tumor based on our visual identification. At this point, we obtained hemostasis with irrigation and the bipolar. We lined the surgical cavity with Surgicel. We placed a small layer of suturable DuraGen over the overlying dural defect and sutured it with several interrupted 4-0 Nurolon sutures to tack it in place. The bone flap was then reaffixed to the overlying calvarium with the plating system. The wound was irrigated copiously with gentamicin irrigation. A drain was left in the subgaleal space and then the scalp flap reattached to the overlying tissues with interrupted Vicryl sutures and a running nylon stitch for the skin. The patient's wounds were dressed sterilely after being taken out of the Kurtz llanes device. He was then taken to the recovery room in stable condition, but was still very sleepy and lethargic. There were no noted changes on neuromonitoring throughout the procedure. The patient tolerated the procedure well. The needle, sponge, and instrument count were correct at end of the case. COMPLICATIONS: None. /[id number]/MODL MTDD
[2017-05-12] MEDS ORDERED: DEXAMETHASONE 4 MG TAB PO SCH (18:00)
[2017-05-12] MEDS: DEXAMETHASONE 4 MG/ML VIAL IVP SCH (19:53)
[2017-05-12] MEDS ORDERED: levETIRAcetam 250 MG TAB PO SCH (21:00)
[2017-05-12] MEDS: SENNOSIDES/DOCUSATE SODIUM TAB PO SCH (21:00)
[2017-05-12] MEDS: levETIRAcetam 750 MG in NS 100 ML IV SCH (21:00)
[2017-05-13] MEDS: DEXAMETHASONE 4 MG/ML VIAL IVP SCH ×2 (00:07→06:08)
[2017-05-13] MEDS: niCARdipine/NACL 200 ML IV SCH ×2 (02:05→06:09)
[2017-05-13] MEDS: NS W/ 20 KCl/L 1,000 ML IV SCH (02:05)
[2017-05-13] MEDS: levETIRAcetam 750 MG in NS 100 ML IV SCH (08:12)
[2017-05-13] MEDS: ENOXAPARIN 40 MG/0.4 ML SYR SC SCH (08:12)
[2017-05-13] MEDS: SENNOSIDES/DOCUSATE SODIUM TAB PO SCH ×2 (08:12→21:08)
[2017-05-13] MEDS: PSYLLIUM METAMUCIL 1 PKT PO SCH (08:12)
[2017-05-13] MEDS: MULTIVITAMINS 1 EACH TAB PO SCH (08:12)
--- NOTE | 2017-05-13 08:29 | SOAPPROG ---
TAMIKOAP Progress Note Assessment/Plan: Assessment: POD#1 s/p left craniotomy for sphenoid wing meningioma resection Plan: -speech much improved today -MRI brain with contrast this morning -wean off nicardipine -steroid taper -continue keppra -will check followup cbc/bmp -pt/ot/speech -tx to floor after MRI -LEONIDES output 200, will leave today -please call with any questions or change in neuro exam 05/13/17 08:24 05/13/17 08:29 Subjective: no complaints, speech much improved Objective: Vital Signs Temp Pulse Resp BP Pulse Ox 36.7 C 67 11 L 107/60 99 05/13/17 04:00 05/13/17 07:00 05/13/17 07:00 05/13/17 07:00 05/13/17 07:00 05/12/17 05/13/17 05/14/17 05:59 05:59 05:59 Intake Total 3593 Output Total 2950 Balance 643 AAOx3, speech clear and fluent this am, strength full, no drift, sensation intact, dressings c/d/i - Pending Discharge Pending Discharge Within 24 Hours: No Pending Discharge Within 48 Hours: Yes Pending Discharge Date: 05/15/17 Pending Discharge Time: 11:00 ICD10 Worksheet Patient Problems: Problems Problem Status Onset COPD (chronic obstructive pulmonary disease) Acute Chronic Disease Mgmt/Transitional Care Acute Mass of left temporal lobe Acute Mental status change resolved Acute
[2017-05-13] MEDS ORDERED: ALBUTEROL 60 PUFFS/8 GM MDI IH PRN (10:41)
[2017-05-13] MEDS ORDERED: DEXAMETHASONE 4 MG/ML VIAL PO SCH (10:44)
[2017-05-13] MEDS ORDERED: hydrALAZINE 25 MG TAB PO PRN (10:46)
[2017-05-13] MEDS ORDERED: ALBUTEROL 200 PUFFS/18 GM MDI IH PRN (11:01)
[2017-05-13] MEDS: NICOTINE 21 MG/24 HR PATCH TD SCH (11:41)
[2017-05-13 11:55] LABS: HEMATOCRIT 41.4 % (40.0-51.0); HEMOGLOBIN 13.8 g/dL (13.7-17.5); MEAN CELL HEMOGLOBIN 33.6 pg (27.9-34.1); MEAN CELL HEMOGLOBIN CONCENTR. 33.3 g/dL (32.4-36.7); MEAN CELL VOLUME 100.7 fL (81.5-99.8); RED BLOOD CELL COUNT 4.11 10^6/uL (4.40-6.38); RED CELL DISTRIBUTION WIDTH 14.5 % (11.5-15.2)
[2017-05-13] MEDS ORDERED: GADOBUTROL 10 ML VIAL IVP ONE (11:55)
[2017-05-13 12:36] LABS: ANION GAP 7 mEq/L (8-16); CARBON DIOXIDE 26 mEq/l (22-31); CHLORIDE 105 mEq/L (97-110); CREATININE 1.1 mg/dL (0.7-1.3); GLOMERULAR FILTRATION RATE > 60; GLUCOSE 139 mg/dL (70-100); POTASSIUM 4.7 mEq/L (3.5-5.2); SODIUM 138 mEq/L (134-144)
--- NOTE | 2017-05-13 14:52 | GCON ---
[f rep st] CONSULTATION PULMONARY CRITICAL CARE CONSULTATION DATE OF CONSULTATION: 05/13/2017 REASON FOR CONSULTATION: Intensive care unit evaluation and medical management following craniotomy . HISTORY: The patient is a pleasant 71-year-old with a history of underlying COPD, who had a meningi jared resected yesterday. The procedure went well. Estimated blood loss was 200 mL. He was returned to the intensive care unit, extubated with stable vital signs. Neurologically, he was nonfocal and quite somnolent. He had received 3 doses of Narcan in the recovery room. He was slow to wake up a nd overnight gradually became more verbal. He does a history of chronic obstructive pulmonary disease and continues to smoke cigarettes up to a pack per day. He has no other significant medical problems. He was on Keppra and dexamethasone pr ior to admission, as well as other medications, including p.r.n. Advair. DRUG ALLERGIES: None known. SOCIAL HISTORY: The patient has a life partner. He continues to smoke cigarettes. He drinks alcoh ol socially without problems. FAMILY HISTORY: Noncontributory. REVIEW OF SYSTEMS: Negative for heart disease, thromboembolic disease, GI problems, etc. He denies cough or mucus, significant shortness of breath. His primary care physician is Darion Laurent MD. H e is not followed by Pulmonary. PHYSICAL EXAMINATION: GENERAL: Reveals a gentleman who is conversant and appropriate, oriented but impulsive and unclear regarding details. VITAL SIGNS: Blood pressure is 120/60, heart rate 75 wit h sinus rhythm on the monitor, respiratory rate is 16. On 2 L, saturations are 96%. HEENT: Head i s wrapped. This was not taken down. Dressings appear clean and dry. Pupils are equal. CHEST: Cl ear bilaterally. Breath sounds are diminished, and expiratory phase is prolonged. There are no whe ezes; no rhonchi. HEART: Regular in rate and rhythm. Heart tones are somewhat distant. There are no significant murmurs; no gallops. P2 is difficult to appreciate. ABDOMEN: Soft, nontender. [place] wel sounds are present, somewhat diminished. EXTREMITIES: Without edema, cords, or tenderness. A urinary catheter is in place with good urine output. Jean-Chang wound drain is in place. ASSESSMENT: 1. Status post meningioma resection. 2. Altered mental status: Significantly improved, however, he does remain somewhat confused postop eratively. PT and OT, as well as speech therapy are working with the patient. 3. Chronic obstructive pulmonary disease, likely moderate: He does continue to smoke cigarettes. Inhaled therapies are being used as needed. 4. Metabolic: No issues identified. 5. Deep vein thrombosis prophylaxis: On enoxaparin. 6. Gastrointestinal prophylaxis: None indicated, eating. PLAN AND RECOMMENDATIONS: The patient will be kept in the intensive care unit for now. If he does well throughout the day, it is possible he could be transferred to a medical-surgical bed on the [facility] floor. Laboratory will be intermittently followed. Advair and p.r.n. albuterol will be cont inued. Other medications include the Keppra, bowel protocol, etc., will be continued. Hydralazine will be added as needed for blood pressure. A nicotine patch will be prescribed. Further plans and recommendations will be made based on his progress over the next 12-24 hours. /[id number]/MODL
[2017-05-13] MEDS: OXYCODONE/APAP 5/325 TAB PO PRN (17:14)
[2017-05-13] MEDS: DEXAMETHASONE 4 MG TAB PO SCH ×2 (18:28→23:50)
[2017-05-13] MEDS ORDERED: levETIRAcetam 500 MG TAB PO SCH (21:00)
[2017-05-13] MEDS: levETIRAcetam 500 MG TAB PO SCH (21:08)
[2017-05-14] MEDS: OXYCODONE/APAP 5/325 TAB PO PRN (05:46)
[2017-05-14] MEDS: DEXAMETHASONE 4 MG TAB PO SCH ×3 (05:48→20:18)
--- NOTE | 2017-05-14 08:26 | SOAPPROG ---
MAO Progress Note Assessment/Plan: Assessment: POD#2 s/p left craniotomy for sphenoid wing meningioma resection Plan: -speech much improved -MRI brain with contrast shows gross total resection, no complications -steroid taper over 1 week -continue keppra -pt/ot/speech -tx to floor - anticipate d/c tomorrow -LEONIDES drain removed -please call with any questions or change in neuro exam 05/13/17 08:24 05/13/17 08:29 05/14/17 08:24 Subjective: no complaints, doing well Objective: Vital Signs Temp Pulse Resp BP Pulse Ox 36.8 C 70 92 H 150/86 H 97 05/14/17 08:00 05/14/17 08:00 05/14/17 08:00 05/14/17 08:00 05/14/17 00:00 Laboratory Results 05/13/17 11:48 05/13/17 11:48 05/13/17 05/14/17 05/15/17 05:59 05:59 05:59 Intake Total 3593 2600 Output Total 2950 1425 Balance 643 1175 AAOx3, speech clear and fluent, full strength/sensation, no drift, wound c/d/i - Pending Discharge Pending Discharge Within 24 Hours: Yes Pending Discharge Date: 05/15/17 Pending Discharge Time: 11:00 ICD10 Worksheet Patient Problems: Problems Problem Status Onset COPD (chronic obstructive pulmonary disease) Acute Chronic Disease Mgmt/Transitional Care Acute Mass of left temporal lobe Acute Mental status change resolved Acute
[2017-05-14] MEDS: NICOTINE 21 MG/24 HR PATCH TD SCH (08:37)
[2017-05-14] MEDS: levETIRAcetam 500 MG TAB PO SCH ×2 (08:37→20:21)
[2017-05-14] MEDS: SENNOSIDES/DOCUSATE SODIUM TAB PO SCH ×2 (08:37→20:19)
[2017-05-14] MEDS: ENOXAPARIN 40 MG/0.4 ML SYR SC SCH (08:38)
[2017-05-14] MEDS: PSYLLIUM METAMUCIL 1 PKT PO SCH (09:19)
[2017-05-14] MEDS: MULTIVITAMINS 1 EACH TAB PO SCH (09:19)
[2017-05-14] MEDS ORDERED: *MD ORDERING ONLY-DEXAMETHASONE TAPER IVP/PO SCH (11:45)
[2017-05-15] MEDS: DEXAMETHASONE 4 MG TAB PO SCH (06:19)
[2017-05-15 07:35] VITALS: BP 142/86; PULSE 73; RESP 18; TEMP 98.4; O2SAT 92
--- NOTE | 2017-05-15 07:42 | NEUSURGPN ---
Date of Surgery: 05/12/17 Post Op Day: 3 Assessment/Plan: Assessment: POD#3 s/p left craniotomy for sphenoid wing meningioma resection Plan: -speech much improved -MRI brain with contrast shows gross total resection, no complications noted -steroid taper over 1 week -continue keppra -pt/ot/speech -tx to floor - anticipate d/c today once cleared by therapies -LEONIDES drain removed already -CDI -please call with any questions or change in neuro exam Subjective: Awake and alert. NAD. Eating/drinking and voiding. No f/c/n/v/d. No cavanaugh/neck/ chest/abd or gu complaints. Objective: AAOx3 speech clear and fluent full strength/sensation, no drift, wound c/d/i Neuro Check Frequency: per routine Urinary Catheter in Place: No Catheter Insertion Date: 05/12/17 - Physician Discussed Patient with : Tiana Patient Seen by : Tiana Neurosurgery Physical Exam - Vitals, I&O, Labs I and O 05/14/17 05/15/17 05/16/17 05:59 05:59 05:59 Intake Total 2600 1000 Output Total 1425 400 Balance 1175 600 Intake: Oral (ml) 2100 1000 IV Infused (ml) 500 NS W/ 20 KCl/L 1,000 ml @ 200 100 mls/hr IV CONT RIVKA Rx#:[id number] niCARdipine/NACL 200 ml @ 300 Titrate IV CONT RIVKA Rx#: [id number] Output: Urine (ml) 1250 400 Catheter 450 Urinal 800 400 LEONIDES Drain Output (ml) 175 #1 Jean Chang 175 Other: Number of Voids Toilet 3 Urinal 3 1 Number of Stools Urinal 1 Vital Signs Temp Pulse Resp BP Pulse Ox 36.9 C 73 18 142/86 H 92 05/15/17 07:32 05/15/17 07:32 05/15/17 07:32 05/15/17 07:32 05/15/17 07:32 Laboratory Results 05/13/17 11:48 05/13/17 11:48 ICD10 Worksheet Patient Problems: Problems Problem Status Onset COPD (chronic obstructive pulmonary disease) Acute Chronic Disease Mgmt/Transitional Care Acute Mass of left temporal lobe Acute Mental status change resolved Acute
[2017-05-15] MEDS: ENOXAPARIN 40 MG/0.4 ML SYR SC SCH (08:57)
[2017-05-15] MEDS: NICOTINE 21 MG/24 HR PATCH TD SCH (08:58)
[2017-05-15] MEDS: PSYLLIUM METAMUCIL 1 PKT PO SCH (08:58)
[2017-05-15] MEDS: levETIRAcetam 500 MG TAB PO SCH (08:58)
[2017-05-15] MEDS: MULTIVITAMINS 1 EACH TAB PO SCH (08:59)
[2017-05-15] MEDS: SENNOSIDES/DOCUSATE SODIUM TAB PO SCH (08:59)
[2017-05-16] MEDS ORDERED: DEXAMETHASONE 4 MG TAB PO SCH (09:00)
[2017-05-18] MEDS ORDERED: DEXAMETHASONE 2 MG TAB PO SCH (09:00)
[2017-05-20] MEDS ORDERED: DEXAMETHASONE 2 MG TAB PO SCH (09:00)
== END 2017-05-15 13:01 | disposition home or self-care (01) | DRG 27 ==
LOC: F3N 06:01 → F2N 16:16 → F3N 05-14 07:55
PROVIDERS: ADMIT Neurological Surgery; ATTEND Neurological Surgery
PROC: 00N Central Nervous System and Cranial Nerves, Release (ICD-10-PCS; principal; 2017-05-12 07:15)
PROC: 00B10ZX Excision of Cerebral Meninges, Open Approach, Diagnostic (ICD-10-PCS; principal; 2017-05-12 07:15)
DX: D32.0 Benign neoplasm of cerebral meninges (principal); J44.9 Chronic obstructive pulmonary disease, unspecified; F17.210 Nicotine dependence, cigarettes, uncomplicated
CPT/HCPCS: 92523-GN; 97112-GP; 97116-GP; 97163-GP; 97166-GO; 97532-GO; 97535-GO; A9585; C1713; G8978-GP-CK; G8979-GP-CI; G8987-GO-CK; G8988-GO-CI; G8989-GO-CJ; G9168-GN-CK; G9169-GN-CI; J0171; J0690; J1100; J1650; J1953; J2250; J2310; J2405; J2704; J3010

== ENCOUNTER 2017-05-22 16:04 | Emergency (ER) | payer OTHER, MEDICARE ==
--- NOTE | 2017-05-22 16:49 | EDPHY ---
H & P Stated Complaint: RECENT CRANIOTOMY, BILATERAL FEET AND ANKLE SWELLING HPI/ROS: CHIEF COMPLAINT: Bilateral pedal swelling HISTORY OF PRESENT ILLNESS: The patient is a 72 y/o male who presents with bilateral pedal swelling. He had a craniotomy on 05/12/17, 9 days ago, for removal of a tumor. Pathology not available. He has been taking Prednisone for the past 3 weeks, but finished the prescription yesterday. His friend notes he has been more agitated and has had abnormal moods since his craniotomy. His friend also notes he has developed new repetitive movements of his mouth since surgery. He is having a difficult time walking and standing because of dizziness, he notes his right leg is weaker than his left--it seems that this is not new. Last night he ate a larger quantity of salt than usual, which he believes may be contributing to his pedal swelling. Denies chest pain, fever, headache or other pertinent symptoms. REVIEW OF SYSTEMS: A ten point review of systems was performed and is negative with the exception of the items mentioned in the HPI. Past medical history: Single functioning kidney Left frontal craniotomy COPD Anxiety Past surgical history: Craniotomy on 05/12/17 Social history: Smoker Friend at bedside Prior medical records reviewed including admission report from Dr. Sinclair on 05/01/17. General Appearance: Alert. Vital signs reviewed. BP 145/65. Head: Surgical incision with sutures intact, no warmth, redness, or drainage. No swelling. Eyes: Pupils equal and round, no conjunctival injection, no discharge. Anicteric. ENT, Mouth: Mucous membranes are moist, no oropharyngeal erythema or edema. Neck: No lymphadenopathy, supple. Respiratory: Lungs with mild wheezing, no rales or rhonchi. Cardiovascular: Regular rate and rhythm; no murmur, rub, or gallop. Gastrointestinal: Abdomen is soft and nontender, no masses or organomegaly, bowel sounds normal. Skin: Warm and dry, no rashes on exposed skin, normal color. Back: Nontender to palpation over the thoracolumbar spine. No CVAT. Extremities: Mild bilateral pedal edema, no calf tenderness or swelling. Neurological: Alert and oriented. Moving all four extremities easily and equally. No truncal ataxia. Occasional brief rhythmic movements, lip smacking, of mouth-- self limited and no other associated symptoms. Cranial nerves II through XII are examined and are intact (visual acuity not tested). Strength is 5 over 5 bilaterally with testing of all major motor groups. Sensation is intact to light touch over all 4 extremities. Deep tendon reflexes are 2+ in the biceps and knees bilaterally. Gait is wide- based. Gxbrus-dm-ataj is performed accurately. Psychiatric: Normal affect. - Personal History Current Tetanus/Diphtheria Vaccine: Unsure - Medical/Surgical History Hx Asthma: No Hx Chronic Respiratory Disease: Yes Hx Diabetes: No Hx Cardiac Disease: No Hx Renal Disease: Yes Hx Cirrhosis: No Hx Alcoholism: No Hx HIV/AIDS: No Hx Splenectomy or Spleen Trauma: No Other PMH: PMH: COPD, Kindey stones, L kidney not functioning. 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, CRANIOTOMY 05/12 - Social History Smoking Status: Heavy smoker Constitutional: Initial Vital Signs Temperature (C) 37 C 05/22/17 16:05 Heart Rate 70 05/22/17 16:05 Blood Pressure 145/65 H 05/22/17 16:05 O2 Sat (%) 94 05/22/17 16:05 O2 Delivery Mode Room Air Allergies/Adverse Reactions: No Known Allergies Allergy (Verified 05/22/17 16:10) Home Medications: Medication Instructions Recorded levETIRAcetam [Keppra 500 mg (*)] 750 mg PO BID #60 tab 05/15/17 Medical Decision Making ED Course/Re-evaluation: 1735: Discussed with patient and his friend the proposed work-up including bloodwork and possibly imaging (after discussion with neurosurgery). I am not particularly concerned about his LE edema. It could be related to his prednisone (as could his mood changes). He finished his prednisone yesterday. It could also be due to, among other considerations, excess salt intake, CHF, DVT (would have to be bilateral). The only abnormality that I note on neuro exam is occasional lip smacking (which could be focal seizure). He reports dizziness and some leg weakness, but I do not appreciate this on exam. Before I could begin a work-up he and his friend came to me and requested that he be discharged. They understand that no work-up was done aside form history and physical. He has an upcoming appointment with neurosurgery. Danger signs reviewed. He will be discharged with instructions to decrease his salt intake. Return precautions provided; patient is comfortable with this plan. Departure - Departure Disposition: Home, Routine, Self-Care Clinical Impression: Ankle edema Condition: Good Instructions: Leg Edema (ED), Edema (ED) Additional Instructions: 1. Decrease your salt intake to help prevent your ankle swelling. 2. Follow up with your neurologist if you do not see improvement of your symptoms in the next 4-7 days. 3. Return to the ED if you experience numbness, fever, new weakness, worsening balance, new headache, or other worsening of your symptoms. Referrals: Srinivas Montiel MD [Medical Doctor] - As per Instructions Report Scribed for: Pearl Briceño Report Scribed by: Dawn Paige Date of Report: 05/22/17 Time of Report: 16:50 Physician Review and Approval Statement: 05/22/17 16:49 Portions of this note were transcribed by the medical dosimetrist. I, Dr. Pearl Briceño, personally performed the history, physical exam, and medical decision- making; and confirmed the accuracy of the information in the transcribed note.
[2017-05-22 17:51] VITALS: BP 122/76; PULSE 82; RESP 16; TEMP 98.1; O2SAT 98
== END 2017-05-22 17:51 | disposition home or self-care (01) ==
DX: M25.472 Effusion, left ankle (principal); M25.471 Effusion, right ankle; J44.9 Chronic obstructive pulmonary disease, unspecified; F17.200 Nicotine dependence, unspecified, uncomplicated

== ENCOUNTER → 2017-06-27 | Outpatient (CLI) | payer OTHER, MEDICARE ==
--- NOTE | 2017-06-27 17:19 | CPEEG ---
[f rep st] ELECTROENCEPHALOGRAM EEG DATE OF STUDY: 06/27/2017 INTERPRETATION: This EEG is abnormal due to the following reasons: 1. There were frequent potentially epileptogenic abnormalities over the left temporal head region. These findings would be consistent with a focal seizure disorder. 2. There was a mild degree of focal slowing and asymmetry of the left frontotemporal head regions, consistent with the patient's previous neurosurgical procedure. 3. There were no electrographic seizures recorded during the study. REPORT: This EEG contains 9 Hz alpha to the posterior head regions. There was a mild degree of focal slowing and asymmetry with increased amplitudes (breach rhythm) over the left frontotemporal head regions. The primary feature of this recording was the presence of frequent left temporal spikes and sharp waves ( maximal at electrode T3 and F7). These discharges occurred at baseline and continued through photic stimulation and hyperventilation. The patient became drowsy and fell asleep during the study. During drowsiness and sleep, there was continued activation of left temporal spikes and sharp waves. No electrographic seizures were recorded during the awake or sleep study. The findings of this EEG were discussed with his primary neurologic provider, Dedrick Elias /[id number]/MODL MTDD
== END ==
LOC: FCPNEURO 12:48
PROVIDERS: ATTEND Psychiatry & Neurology Neurology
DX: R94.01 Abnormal electroencephalogram [EEG] (principal); D32.9 Benign neoplasm of meninges, unspecified; G40.909 Epilepsy, unspecified, not intractable, without status epilepticus

== ENCOUNTER 2017-07-01 12:41 | Emergency (ER) | payer OTHER, MEDICARE ==
[2017-07-01 12:48] VITALS: TEMP 97.9; O2SAT 92
[2017-07-01 13:37] LABS: % IMMATURE GRANULYOCYTES 0.6 % (0.0-1.1); ABSOLUTE IMMATURE GRANULOCYTES 0.04 10^3/uL (0.00-0.10); ADD DIFF? NO; ADD MORPH? NO; ADD SCAN? NO; ATYPICAL LYMPHOCYTE FLAG 20 (0-99); FRAGMENT RBC FLAG 0 (0-99); HEMATOCRIT 39.8 % (40.0-51.0); HEMOGLOBIN 13.3 g/dL (13.7-17.5); LEFT SHIFT FLG 0 (0-99); LIPEMIA HEMOLYSIS FLAG 80 (0-99); MEAN CELL HEMOGLOBIN 33.7 pg (27.9-34.1); MEAN CELL HEMOGLOBIN CONCENTR. 33.4 g/dL (32.4-36.7); MEAN CELL VOLUME 100.8 fL (81.5-99.8); MEAN PLATELET VOLUME 9.3 fL (8.7-11.7); PLATELET CLUMPS FLAG 10 (0-99); PLATELET COUNT 175 10^3/uL (150-400); RED BLOOD CELL COUNT 3.95 10^6/uL (4.40-6.38); RED CELL DISTRIBUTION WIDTH 16.9 % (11.5-15.2)
--- NOTE | 2017-07-01 13:37 | EDPHY ---
H & P Stated Complaint: swollen legs, 14lb weight gain x 2 weeks Time Seen by Provider: 07/01/17 13:14 HPI/ROS: CHIEF COMPLAINT: Weight gain HISTORY OF PRESENT ILLNESS: The patient is a 72-year-old man who comes to the emergency department at the advice of his girlfriend because he has gained 20 lb since May 12 when he had a craniectomy for a left temporal tumor. He has recovered well except for the weight gain. He states that 14 of those 20 lb have been since his girlfriend when out of town 2 weeks ago. He feels that his ankles are swollen. He also states that his gabapentin was increased 1 week ago by his neurologist. He was wondering if his neurologist remembered that he only had 1 kidney after complications from a kidney stone several years ago. He also states that he occasionally dribbles his urine. He denies shortness of breath. He does have a history of COPD. He denies abdominal distention. He denies chest pain. REVIEW OF SYSTEMS: Constitutional: denies: chills, fever, recent illness, recent injury EENTM: denies: blurred vision, double vision, nose congestion Respiratory: denies: cough, shortness of breath Cardiac: denies: chest pain, irregular heart rate, lightheadedness, palpitations Gastrointestinal/Abdominal: denies: abdominal pain, diarrhea, nausea, vomiting, blood streaked stools Genitourinary: denies: dysuria, frequency, hematuria, pain Musculoskeletal: denies: joint pain, muscle pain Skin: denies: lesions, rash, jaundice, bruising Neurological: denies: headache, numbness, paresthesia, tingling, dizziness, weakness Hematologic/Lymphatic: denies: blood clots, easy bleeding, easy bruising Immunologic/allergic: denies: HIV/AIDS, transplant EXAM: GENERAL: Well-appearing, well-nourished and in no acute distress. HEAD: Atraumatic, normocephalic. EYES: Pupils equal round and reactive to light, extraocular movements intact, sclera anicteric, conjunctiva are normal. ENT: TMs normal, nares patent, oropharynx clear without exudates. Moist mucous membranes. NECK: Normal range of motion, supple without lymphadenopathy or JVD. LUNGS: Breath sounds clear to auscultation bilaterally and equal. No wheezes rales or rhonchi. HEART: Regular rate and rhythm without murmurs, rubs or gallops. ABDOMEN: Soft, nontender, normoactive bowel sounds. No guarding, no rebound. No masses appreciated. BACK: No CVA tenderness, no spinal tenderness, step-offs or deformities EXTREMITIES: Normal range of motion, very minimal edema barely noticeable around ankles only. No clubbing or cyanosis. NEUROLOGICAL: Cranial nerves II through XII grossly intact. Normal speech, normal gait. 5/5 strength, normal movement in all extremities, normal sensation PSYCH: Normal mood, normal affect. SKIN: Warm, dry, normal turgor, no visible rashes or lesions. Source: Patient Exam Limitations: No limitations - Personal History Current Tetanus/Diphtheria Vaccine: Unsure Current Tetanus Diphtheria and Acellular Pertussis (TDAP): Unsure - Medical/Surgical History Hx Asthma: No Hx Chronic Respiratory Disease: Yes Hx Diabetes: No Hx Cardiac Disease: No Hx Renal Disease: Yes Hx Cirrhosis: No Hx Alcoholism: No Hx HIV/AIDS: No Hx Splenectomy or Spleen Trauma: No Other PMH: PMH: COPD, Kindey stones, L kidney not functioning. 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, CRANIOTOMY 05/12, Brain tumor - Family History Significant Family History: No pertinent family hx - Social History Smoking Status: Heavy smoker Alcohol Use: Sober Drug Use: None Constitutional: Initial Vital Signs Temperature (C) 36.6 C 07/01/17 12:44 Heart Rate 90 07/01/17 12:44 Respiratory Rate 18 07/01/17 12:44 Blood Pressure 146/78 H 07/01/17 12:44 O2 Sat (%) 92 07/01/17 12:44 O2 Delivery Mode Room Air Allergies/Adverse Reactions: No Known Allergies Allergy (Verified 07/01/17 12:43) Home Medications: Medication Instructions Recorded Gabapentin 07/01/17 Medical Decision Making - Diagnostics Imaging Results: Imaging Impressions Chest X-Ray 07/01/17 13:31 Impression: Clear lungs. No acute process. ED Course/Re-evaluation: As I was dictating and ordering testing the patient got dressed and walked out of the emergency department. 3:00 p.m. the patient is feeling completely well. He is eager to go. His lab work is reassuring. Urinalysis is not yet returned. We will dip it. He is asking to have his IV out. He will follow up with his regular doctor. Differential Diagnosis: Partial list of the Differential diagnosis considered include but were not limited to; edema, CHF, renal insufficiency, ascites, anxiety and although unlikely based on the history and physical exam, I also considered pneumonia, acute coronary disease, arrhythmia, infection . - Data Points Laboratory Results: Laboratory Results 07/01/17 13:05 07/01/17 13:05 07/01/17 07/01/17 07/01/17 13:05 13:05 13:05 WBC 7.23 10^3/uL 10^3/uL (3.80-9.50) RBC 3.95 10^6/uL L 10^6/uL (4.40-6.38) Hgb 13.3 g/dL L g/dL (13.7-17.5) Hct 39.8 % L % (40.0-51.0) MCV 100.8 fL H fL (81.5-99.8) MCH 33.7 pg pg (27.9-34.1) MCHC 33.4 g/dL g/dL (32.4-36.7) RDW 16.9 % H % (11.5-15.2) Plt Count 175 10^3/uL 10^3/uL (150-400) MPV 9.3 fL fL (8.7-11.7) Neut % (Auto) 57.3 % % (39.3-74.2) Lymph % (Auto) 26.0 % % (15.0-45.0) Eddy % (Auto) 13.4 % H % (4.5-13.0) Eos % (Auto) 2.1 % % (0.6-7.6) Baso % (Auto) 0.6 % % (0.3-1.7) Nucleat RBC Rel Count 0.0 % % (0.0-0.2) Absolute Neuts (auto) 4.15 10^3/uL 10^3/uL (1.70-6.50) Absolute Lymphs (auto) 1.88 10^3/uL 10^3/uL (1.00-3.00) Absolute Monos (auto) 0.97 10^3/uL H 10^3/uL (0.30-0.80) Absolute Eos (auto) 0.15 10^3/uL 10^3/uL (0.03-0.40) Absolute Basos (auto) 0.04 10^3/uL 10^3/uL (0.02-0.10) Absolute Nucleated RBC 0.00 10^3/uL 10^3/uL (0-0.01) Immature Gran % 0.6 % % (0.0-1.1) Immature Gran # 0.04 10^3/uL 10^3/uL (0.00-0.10) D-Dimer 0.29 ug/mLFEU ug/mLFEU (0.00-0.50) Sodium 137 mEq/L mEq/L (134-144) Potassium 4.4 mEq/L mEq/L (3.5-5.2) Chloride 103 mEq/L mEq/L (97-110) Carbon Dioxide 28 mEq/l mEq/l (22-31) Anion Gap 6 mEq/L L mEq/L (8-16) BUN 21 mg/dL mg/dL (7-23) Creatinine 1.3 mg/dL mg/dL (0.7-1.3) Estimated GFR 54 Glucose 89 mg/dL mg/dL (70-100) Calcium 9.9 mg/dL mg/dL (8.5-10.4) Total Bilirubin 0.6 mg/dL mg/dL (0.1-1.4) Conjugated Bilirubin 0.3 mg/dL mg/dL (0.0-0.5) Unconjugated Bilirubin 0.3 mg/dL mg/dL (0.0-1.1) AST 20 IU/L IU/L (17-59) ALT 29 IU/L IU/L (21-72) Alkaline Phosphatase 65 IU/L IU/L (38-126) Troponin I < 0.012 ng/mL ng/mL (0.000-0.034) NT-Pro-B Natriuret Pep 239 pg/mL H pg/mL (0-125) Total Protein 6.0 g/dL L g/dL (6.3-8.2) Albumin 3.6 g/dL g/dL (3.5-5.0) Lipase 90 IU/L IU/L (23-300) Departure - Departure Disposition: Home, Routine, Self-Care Clinical Impression: Weight gain Condition: Fair Instructions: Normal Exam (ED) Referrals: Darion Laurent MD [Primary Care Provider] - As per Instructions
[2017-07-01 13:54] LABS: ALANINE AMINOTRANSFERASE 29 IU/L (21-72); ALBUMIN 3.6 g/dL (3.5-5.0); ALKALINE PHOSPHATASE 65 IU/L (38-126); ANION GAP 6 mEq/L (8-16); ASPARTATE AMINOTRANSFERASE 20 IU/L (17-59); BILIRUBIN,TOTAL 0.6 mg/dL (0.1-1.4); BILIRUBIN-CONJUGATED 0.3 mg/dL (0.0-0.5); BILIRUBIN-UNCONJUGATED 0.3 mg/dL (0.0-1.1); CALCIUM 9.9 mg/dL (8.5-10.4); CARBON DIOXIDE 28 mEq/l (22-31); CHLORIDE 103 mEq/L (97-110); CREATININE 1.3 mg/dL (0.7-1.3); GLOMERULAR FILTRATION RATE 54; GLUCOSE 89 mg/dL (70-100); POTASSIUM 4.4 mEq/L (3.5-5.2); SODIUM 137 mEq/L (134-144)
[2017-07-01 13:56] LABS: TROPONIN I < 0.012 ng/mL (0.000-0.034)
[2017-07-01 15:17] VITALS: BP 155/83; PULSE 78; RESP 16
== END 2017-07-01 15:15 | disposition home or self-care (01) ==
DX: R63.5 Abnormal weight gain (principal); J44.9 Chronic obstructive pulmonary disease, unspecified; F17.200 Nicotine dependence, unspecified, uncomplicated; Z85.840 Personal history of malignant neoplasm of eye

== ENCOUNTER → 2017-11-27 | Outpatient (CLI) | payer OTHER, MEDICARE | LOC: BMCIMAGING 10:28 | PROVIDERS: ATTEND Internal Medicine | DX: J98.4 Other disorders of lung (principal) ==

== ENCOUNTER 2017-12-27 10:09 | Emergency (ER) | payer OTHER, MEDICARE ==
--- NOTE | 2017-12-27 10:32 | EDPHY ---
H & P Stated Complaint: SOB Time Seen by Provider: 12/27/17 10:31 HPI/ROS: CHIEF COMPLAINT: Dyspnea HISTORY OF PRESENT ILLNESS: The patient presents to the ED with complaints of dyspnea. He was seen at urgent care earlier in the week and reportedly diagnosed with a pulmonary infection. He reports he has been on prednisone and antibiotics since that time. The patient does have a history of COPD and uses Advair. He did use an albuterol nebulizer prior to arrival. He checked his oxygen saturation at home and it was reportedly 87% on room air prompting his visit today. REVIEW OF SYSTEMS: A comprehensive 10 point review of systems is otherwise negative aside from elements mentioned in the history of present illness. Source: Patient Exam Limitations: No limitations - Personal History Current Tetanus/Diphtheria Vaccine: Yes Current Tetanus Diphtheria and Acellular Pertussis (TDAP): Yes - Medical/Surgical History Hx Asthma: No Hx Chronic Respiratory Disease: Yes Hx Diabetes: No Hx Cardiac Disease: No Hx Renal Disease: Yes Hx Cirrhosis: No Hx Alcoholism: Yes Hx HIV/AIDS: No Hx Splenectomy or Spleen Trauma: No Other PMH: PMH: COPD, Kindey stones, L kidney not functioning. 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, CRANIOTOMY 05/12, Brain tumor - Social History Smoking Status: Heavy smoker - Physical Exam Exam: General Appearance: Alert, no distress Eyes: Pupils equal and round no pallor or injection ENT, Mouth: Mucous membranes moist Respiratory: Distant breath sounds, rhonchi which clear with coughing Cardiovascular: Regular rate and rhythm Gastrointestinal: Abdomen is soft and nontender, no masses, bowel sounds normal Neurological: A&O, normal motor function, normal sensory exam, normal cranial nerves Skin: Warm and dry, no rashes Musculoskeletal: Neck is supple nontender Extremities: symmetrical, full range of motion Constitutional: Initial Vital Signs Temperature (C) 37.4 C 12/27/17 10:14 Heart Rate 89 12/27/17 10:14 Respiratory Rate 16 12/27/17 10:14 Blood Pressure 150/80 H 12/27/17 10:14 O2 Sat (%) 93 12/27/17 10:14 O2 Delivery Mode Room Air Allergies/Adverse Reactions: No Known Allergies Allergy (Verified 07/01/17 12:43) Home Medications: Medication Instructions Recorded Carbamazepine 12/27/17 Prednisone 12/27/17 Medical Decision Making ED Course/Re-evaluation: The patient presents to the ED for ongoing dyspnea. The patient arrives and is noted to be hemodynamically stable. He was 92% on room air. The patient does have some mild rhonchi noted on exam. The patient did receive a DuoNeb. A chest x-ray was obtained which demonstrates no evidence of an obvious infiltrate by my interpretation. The patient was observed in the emergency department without significant tachypnea or hypoxemia. I do feel the patient should continue to use his albuterol nebulizer up to every 2-4 hours as needed. He should continue his Advair and prednisone. The patient is advised to follow up with his primary care provider Dr. Laurent. Differential Diagnosis: Differential diagnosis considered includes asthma, bronchitis, pneumonia - Data Points Medications Given: Discontinued Medications Albuterol/Ipratropium (Duoneb) 3 ml IH EDNOW ONE Stop: 12/27/17 10:38 Last Admin: 12/27/17 10:49 Dose: 3 ml Departure - Departure Disposition: Home, Routine, Self-Care Clinical Impression: Acute bronchitis Condition: Good Instructions: Acute Bronchitis (ED) Additional Instructions: 1. Please return to the emergency department for worsening symptoms. 2. Please continue using your albuterol nebulizer up to every 2 hr as needed. 3. Follow up with Dr. Laurent as scheduled. Referrals: Darion Laurent MD [Medical Doctor] - As per Instructions
[2017-12-27] MEDS ORDERED: IPRATROPIUM/ALBUTEROL 3 ML DEYVIAL IH ONE (10:37)
[2017-12-27 11:23] VITALS: BP 152/80
== END 2017-12-27 11:24 | disposition home or self-care (01) ==
DX: J20.9 Acute bronchitis, unspecified (principal); J44.9 Chronic obstructive pulmonary disease, unspecified; F17.200 Nicotine dependence, unspecified, uncomplicated; Z85.840 Personal history of malignant neoplasm of eye; Z85.820 Personal history of malignant melanoma of skin

== ENCOUNTER → 2018-03-13 | Outpatient (CLI) | payer OTHER, MEDICARE | LOC: BMCIMAGING 08:59 | PROVIDERS: ATTEND Internal Medicine | DX: H92.02 Otalgia, left ear (principal); H93.8X2 Other specified disorders of left ear | CPT/HCPCS: 76536-PO ==

== ENCOUNTER 2018-09-12 08:31 | Inpatient (IN) | payer OTHER, MEDICARE ==
--- NOTE | 2018-09-12 08:45 | EDPHY ---
H & P Stated Complaint: cough, cold symptoms Time Seen by Provider: 09/12/18 08:41 - Medical/Surgical History Hx Asthma: No Hx Chronic Respiratory Disease: Yes Hx Diabetes: No Hx Cardiac Disease: No Hx Renal Disease: Yes Hx Cirrhosis: No Hx Alcoholism: Yes Hx HIV/AIDS: No Hx Splenectomy or Spleen Trauma: No Other PMH: PMH: COPD, Kindey stones, L kidney not functioning. 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, CRANIOTOMY 05/12, Brain tumor - Social History Smoking Status: Heavy smoker Constitutional: Initial Vital Signs Temperature (C) 36.9 C 09/12/18 08:32 Respiratory Rate 18 09/12/18 08:32 Blood Pressure 103/62 09/12/18 08:32 O2 Delivery Mode Room Air Allergies/Adverse Reactions: No Known Allergies Allergy (Verified 09/12/18 08:32) Home Medications: Medication Instructions Recorded ALPRAZolam [Xanax 0.25 MG (*)] 0.125 - 0.25 mg PO DAILY 09/12/18 Fluticasone/Salmeter 250/50Mcg 1 puffs IH BID 09/12/18 [Advair 250/50 (*)] Medical Decision Making - Diagnostics Imaging Results: Imaging Impressions Chest X-Ray 09/12/18 08:51 Impression: Bronchitis and bibasilar linear atelectasis. No confluent pneumonia or effusion. Imaging: I viewed and interpreted images myself ED Course/Re-evaluation: CHIEF COMPLAINT: Cold symptoms HISTORY OF PRESENT ILLNESS: The patient is a 73 y/o male with a history of COPD and daily smoking arriving with his friend complaining of cold symptoms for the last three days. He complains of a cough, shortness of breath, significant fatigue, and vague tingling in all his extremities. Symptoms have progressively worsened and his friend has been taking care of him at home. REVIEW OF SYSTEMS: A comprehensive 10 system review of systems is otherwise negative aside from elements mentioned in the history of present illness and medical decision making. PHYSICAL EXAM: HR, BP, O2 Sat, RR. Temp noted General Appearance: Alert, well hydrated, appropriate, and non-toxic appearing. Head: Atraumatic without scalp tenderness or obvious injury Eyes: Pupils equal, round, reactive to light and accommodation, EOMI, no trauma , no injection. Ears: Clear bilaterally, no perforation, normal landmarks Nose: Atraumatic, no rhinorrhea, clear. Throat: There is no erythema or exudates, no lesions, normal tonsils, mucus membranes moist. Neck: Supple, non-tender, no lymphadenopathy. Respiratory: No retractions, no distress, no wheezes, and no accessory muscle use. Lungs have diffuse coarse rhonchi to auscultation bilaterally. Cardiovascular: Regular rate and rhythm, no murmurs, rubs, or gallops. Good capillary refill all extremities. Gastrointestinal: Abdomen is soft, non-tender, non-distended, no masses, no rebound, no guarding, no peritoneal signs. Musculoskeletal: Normal active ROM of all extremities, atraumatic. Neurological: Alert, appropriate, and interactive. The patient has non-focal cranial nerves, motor, sensory, and cerebellar exam. Skin: No rashes, good turgor, no nodules on palpation. PAST MEDICAL HISTORY: COPD, melanoma, renal insufficiency, kidney stones PAST SURGICAL HISTORY: Brain tumor resection SOCIAL HISTORY: Daily smoker. Frequent alcohol use. Friend at bedside. DIAGNOSTICS/PROCEDURES/CRITICAL CARE TIME: Chest x-ray: Bronchitis, no infiltrate DIFFERENTIAL DIAGNOSIS: The differential diagnosis for the patient's shortness of breath and hypoxemia included but was not limited to bronchitis, influenza, pneumonia, myocardial infarction, acute mountain sickness, high altitude pulmonary edema, congestive heart failure, and pulmonary embolus. MEDICAL DECISION MAKING: This is a 73 y/o male with a history of COPD and daily cigarette use who presents with a 3-day history of shortness of breath, cough, and fatigue. He is hypoxemic around 80% on room air with coarse diffuse rhonchi on auscultation. He is afebrile, normotensive, and not tachycardic. Presentation likely respiratory infection vs. COPD exacerbation. Plan for IV, sepsis labs, UA, chest x-ray, and likely admission due to hypoxemia. Lactate elevated at 2.7. Normal WBC. Patient does not meet sepsis criteria. Creatinine elevated at 1.5, consistent with known renal insufficiency. Chest x- ray shows bronchitis. Plan for treatment with 125mg IV Solumedrol and admission. Flu swab positive for flu A. Spoke with hospitalist service. Dr. Henriquez accepts admission. - Data Points Laboratory Results: Laboratory Results 09/12/18 09:01 09/12/18 09:01 12/09/12/18 09/12/18 09:01 09:01 09:01 WBC 7.02 10^3/uL 10^3/uL (3.80-9.50) RBC 5.00 10^6/uL 10^6/uL (4.40-6.38) Hgb 16.0 g/dL g/dL (13.7-17.5) Hct 48.6 % % (40.0-51.0) MCV 97.2 fL fL (81.5-99.8) MCH 32.0 pg pg (27.9-34.1) MCHC 32.9 g/dL g/dL (32.4-36.7) RDW 15.5 % H % (11.5-15.2) Plt Count 133 10^3/uL L 10^3/uL (150-400) MPV 9.6 fL fL (8.7-11.7) Neut % (Auto) Not Reported Lymph % (Auto) Not Reported Harris % (Auto) Not Reported Eos % (Auto) Not Reported Baso % (Auto) Not Reported Nucleat RBC Rel Count Not Reported Absolute Neuts (auto) Not Reported Absolute Lymphs (auto) Not Reported Absolute Monos (auto) Not Reported Absolute Eos (auto) Not Reported Absolute Basos (auto) Not Reported Absolute Nucleated RBC Not Reported Immature Gran % Not Reported Seg Neutrophils % 30.3 % % Band Neutrophils % 42.4 % % Lymphocytes % 7.1 % % Monocytes % 17.2 % % Eosinophils % 0.0 % % Basophils % 2.0 % % Metamyelocytes % 1.0 % % Myelocytes % 0.0 % % Promyelocytes % 0.0 % % Blast Cells % 0.0 % % Immature Gran # Not Reported Absolute Seg Neuts 2.13 10^3/uL 10^3/uL (1.70-6.50) Absolute Band Neuts 2.98 10^3/uL H 10^3/uL (0.00-0.70) Absolute Lymphocytes 0.50 10^3/uL L 10^3/uL (1.00-3.00) Absolute Monocytes 1.21 10^3/uL H 10^3/uL (0.30-0.80) Absolute Eosinophils 0.00 10^3/uL L 10^3/uL (0.03-0.40) Absolute Basophils 0.14 10^3/uL H 10^3/uL (0.02-0.10) Absolute Metamyelocyte 0.07 10^3/mL H 10^3/mL (0.00-0.00) Absolute Myelocytes 0.00 10^3/mL 10^3/mL (0.00-0.00) Absolute Promyelocytes 0.00 10^3/uL 10^3/uL (0.00-0.00) Absolute Plasma Cells 0.00 10^3/uL 10^3/uL (0.00-0.00) Nucleated RBCs 0 /100 WBC /100 WBC (0-0) RBC/WBC/PLT Morphology NORMAL (NORMAL) Absolute Blast Cells 0.00 10^3/uL 10^3/uL (0.00-0.00) Plasma Cells % 0.0 % % Platelet Estimate DECREASED L (ADEQ) PT 13.1 SEC SEC (12.0-15.0) INR 0.97 (0.83-1.16) APTT 28.6 SEC SEC (23.0-38.0) VBG Lactic Acid Sodium 141 mEq/L mEq/L (135-145) Potassium 4.5 mEq/L mEq/L (3.5-5.2) Chloride 103 mEq/L mEq/L (97-110) Carbon Dioxide 28 mEq/l mEq/l (22-31) Anion Gap 10 mEq/L mEq/L (6-14) BUN 16 mg/dL mg/dL (7-23) Creatinine 1.5 mg/dL H mg/dL (0.7-1.3) Estimated GFR 46 Glucose 126 mg/dL H mg/dL (70-100) Calcium 9.4 mg/dL mg/dL (8.5-10.4) Total Bilirubin 0.9 mg/dL mg/dL (0.1-1.4) Nasal Influenza A PCR Nasal Influenza B PCR 09/12/18 09/12/18 09:01 08:50 WBC RBC Hgb Hct MCV MCH MCHC RDW Plt Count MPV Neut % (Auto) Lymph % (Auto) Harris % (Auto) Eos % (Auto) Baso % (Auto) Nucleat RBC Rel Count Absolute Neuts (auto) Absolute Lymphs (auto) Absolute Monos (auto) Absolute Eos (auto) Absolute Basos (auto) Absolute Nucleated RBC Immature Gran % Seg Neutrophils % Band Neutrophils % Lymphocytes % Monocytes % Eosinophils % Basophils % Metamyelocytes % Myelocytes % Promyelocytes % Blast Cells % Immature Gran # Absolute Seg Neuts Absolute Band Neuts Absolute Lymphocytes Absolute Monocytes Absolute Eosinophils Absolute Basophils Absolute Metamyelocyte Absolute Myelocytes Absolute Promyelocytes Absolute Plasma Cells Nucleated RBCs RBC/WBC/PLT Morphology Absolute Blast Cells Plasma Cells % Platelet Estimate PT INR APTT VBG Lactic Acid 2.7 mmol/L H mmol/L (0.7-2.1) Sodium Potassium Chloride Carbon Dioxide Anion Gap BUN Creatinine Estimated GFR Glucose Calcium Total Bilirubin Nasal Influenza A PCR FLU A DETECTED H (NEGATIVE) Nasal Influenza B PCR NEGATIVE FOR FLU B (NEGATIVE) Medications Given: Acetaminophen (Tylenol) 650 mg PO Q6 PRN PRN Reason: Pain, Mild/Fever, Can Take PO Stop: 03/11/19 10:06 Last Admin: 09/12/18 10:40 Dose: 650 mg Ondansetron HCl (Zofran) 4 mg IVP Q4 PRN PRN Reason: Nausea/Vomiting, Can't Take PO Stop: 03/11/19 10:06 Last Admin: 09/12/18 10:40 Dose: 4 mg Oseltamivir Phosphate (Tamiflu) 75 mg PO BID RIVKA Stop: 09/16/18 21:01 Last Admin: 09/12/18 11:04 Dose: 75 mg Discontinued Medications Sodium Chloride (Ns) 1,000 mls @ 0 mls/hr IV EDNOW ONE; Wide Open PRN Reason: Protocol Stop: 09/12/18 11:12 Last Admin: 09/12/18 11:15 Dose: Not Given Methylprednisolone Sodium Succinate (Solu-Medrol) 125 mg IVP EDNOW ONE Stop: 09/12/18 09:51 Last Admin: 09/12/18 10:39 Dose: 125 mg Departure - Departure Disposition: [facility] Acute Clinical Impression: COPD exacerbation, Bronchitis, Hypoxemia, Flu, Renal insufficiency Condition: Fair Report Scribed for: Kevin Hastings Report Scribed by: Tawanna Melgar Date of Report: 09/12/18 Time of Report: 09:54
[2018-09-12 09:19] LABS: PLATELET COUNT 133 10^3/uL (150-400)
[2018-09-12 09:23] LABS: INR 0.97 (0.83-1.16); PROTIME(PATIENT) 13.1 SEC (12.0-15.0)
[2018-09-12] MEDS ORDERED: methylPREDNISolone SOD SUCC 125 MG/2 ML VIAL IVP ONE (09:50)
[2018-09-12] MEDS ORDERED: ACETAMINOPHEN 325 MG TAB PO PRN (10:07)
[2018-09-12] MEDS ORDERED: ONDANSETRON 4 MG/2 ML VIAL IVP PRN (10:07)
--- NOTE | 2018-09-12 10:27 | PDGENHP ---
History and Physical History and Physical: CC: Upper respiratory infection symptoms and shortness of breath, weakness HISTORY: This patient with known COPD and previous COPD exacerbations presents today to the ER with 3 days of weakness, aches, cough and congestion, and shortness of breath. Does not think he had fever. He has nausea but no emesis or abd pain. No rash. Still smokes a pack a day of cigs despite known copd. Drinks 3 shots of vodka/day. 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 I have reviewed the list and ordered appropriate medicines. PHYSICAL EXAMINATION: Vital Signs: Normal vital signs without fever House Manager: sinus in ER Examination: General: alert, oriented, good mentation, relaxed Skin: warm, dry, good color, no rash HEENT: normal Neck: no mass or jvd Resps: relaxed Lungs: diffuse coarse rales with overall diminished BSs Heart: regular, no murmur Abdomen: soft, nondistended, nontender, +BS, no mass Upper Extremities: normal Lower Extremities: no edema, warm No Bleeding or bruising Neurologic: normal speech/language, normal mate relief, no focal weakness IV site: looks normal LABORATORY DATA: Platelets 133k otherwise nl cbc Creat 1.5 with 1.3 baseline, otherwise unremarkable met panel normal coag studies RADIOLOGY STUDIES: I reviewed images from chest x-ray done today in the ER which shows evidence of COPD. There appears to me to be evidence of mild infiltrate in the right lower lobe, some bronchitic changes are present. No effusions or masses MICROBIOLOGY: procalcitonin 0.5 Positive for influenza A in the ER today Blood cultures ordered and pending 12 LEAD EKG: ASSESSMENT: * Acute hypoxemic respiratory failure on chronic * Acute COPD exacerbation * Right lower lobe pneumonia, community aquired post influenza with high procalcitonin * Positive test for influenza A acutely * ongoing tobacco use * alcohol abuse * Chronic Kidney Disease, near his baseline creat at present w history of nephrectomy PLANS: * Inpatient admission * Tamiflu is ordered * Bronchodilators and steroid * empiric antibiotic * Oxygen * DVT prophylaxis * thiamine * nicotine patch I have reviewed the patient's case in detail with Dr. Kevin Hastings I have reviewed the patient's past medical records as part of this assessment, including previous hospital admission records
[2018-09-12] MEDS: OSELTAMIVIR PHOSPHATE 75 MG CAP PO SCH ×2 (11:04→20:04)
[2018-09-12] MEDS ORDERED: NS 1,000 ML IV ONE (11:11)
[2018-09-12] MEDS: IPRATROPIUM/ALBUTEROL 3 ML DEYVIAL IH SCH ×3 (12:32→21:25)
[2018-09-12] MEDS: FLUTICASONE/SALMETER 250/50MCG DISKUS IH SCH ×2 (12:33→21:25)
[2018-09-12] MEDS: predniSONE 20 MG TAB PO SCH ×2 (13:13→17:42)
[2018-09-12] MEDS: AZITHROMYCIN 250 MG TAB PO SCH (13:13)
[2018-09-12] MEDS: THIAMINE HCL 100 MG TAB PO SCH (13:20)
--- NOTE | 2018-09-12 13:49 | PDMN ---
Medical Necessity Medical necessity: Pt meets IP criteria as of 09/12/2018 per and MCG M-100 ( COPD); est los > 2 mn for COPD exacerbation with acute on chronic hypoxemic respiratory failure in the setting of Flu A; requiring respiratory support with scheduled neb treatments, IV ABX, and cardiac rehab consultation.
[2018-09-12] MEDS: MELATONIN 3 MG TAB PO SCH (20:04)
[2018-09-12] MEDS: NICOTINE 21 MG/24 HR PATCH TD SCH (20:04)
[2018-09-13 05:24] LABS: PLATELET COUNT 121 10^3/uL (150-400)
[2018-09-13] MEDS: IPRATROPIUM/ALBUTEROL 3 ML DEYVIAL IH SCH ×4 (05:57→23:58)
[2018-09-13] MEDS: ENOXAPARIN 40 MG/0.4 ML SYR SC SCH (08:56)
[2018-09-13] MEDS: THIAMINE HCL 100 MG TAB PO SCH (08:57)
[2018-09-13] MEDS: OSELTAMIVIR PHOSPHATE 75 MG CAP PO SCH ×2 (08:57→20:48)
[2018-09-13] MEDS: AZITHROMYCIN 250 MG TAB PO SCH (08:58)
[2018-09-13] MEDS: predniSONE 20 MG TAB PO SCH ×2 (08:58→17:58)
[2018-09-13] MEDS: FLUTICASONE/SALMETER 250/50MCG DISKUS IH SCH ×2 (09:28→20:48)
--- NOTE | 2018-09-13 10:36 | ASMTCMCOM ---
CM Note CM Note Notes: Pt admitted to hospital hypoxemia, pt has copd and smokes a pack of cigarettes daily as well as drinks 3 shots of vodka per day. Pt is otherwise independent, lives at home and has a girlfriend. Anticipate he will dc home when medically stable, CM available for any needs. DC Plan: Independent Date Signed: 09/13/2018 10:36 AM Electronically Signed By:Makayla Jeffers RN
--- NOTE | 2018-09-13 11:45 | HOSPPROG ---
Hospitalist Progress Note Assessment/Plan: DIAGNOSES: * Acute hypoxemic respiratory failure on chronic * Acute COPD exacerbation * Right lower lobe pneumonia, community aquired post influenza with high procalcitonin * Positive test for influenza A acutely * ongoing tobacco use * alcohol abuse * Chronic Kidney Disease, near his baseline creat at present w history of nephrectomy PLANS: * continue empiric antibiotics * continue tamiflu * continue bronchodilators and steroid * add flutter valve * increase activity as able * Repeat chest x-ray tomorrow SUBJECTIVE: Still with quite a bit of cough and dyspnea No chest pain No nausea No chills OBJECTIVE Vitals reviewed: Stable without fever Oxygen monitor: 85% room air saturation today requiring 5 L for 90% Exam: alert oriented skin warm dry color ok resps not labored lungs coarse bronchitic and diminished heart regular abd soft nondistended nontender, bowel sounds present limbs warm, no edema iv site ok Laboratory data: Platelets slightly lower at 121,000 Otherwise stable CBC Basic met panel with improved creatinine at 1.3 though BUN interestingly is higher Microbiology data: Positive PCR for influenza A Blood cultures no growth so far still pending Objective: Vital Signs Temp Pulse Resp BP Pulse Ox 36.6 C 78 16 122/70 H 93 09/13/18 08:00 09/13/18 11:37 09/13/18 11:37 09/13/18 08:00 09/13/18 11:37 Laboratory Results 09/13/18 04:39 09/13/18 04:39 09/12/18 09/13/18 09/14/18 06:59 06:59 06:59 Intake Total 950 Balance 950 PT 13.1 SEC (12.0-15.0) 09/12/18 09:01 INR 0.97 (0.83-1.16) 09/12/18 09:01 ICD10 Worksheet Patient Problems: Problems Problem Status Onset Bronchitis Acute COPD exacerbation Acute Flu Acute Hypoxemia Acute Renal insufficiency Acute COPD (chronic obstructive pulmonary disease) Acute Chronic Disease Mgmt/Transitional Care Acute Mass of left temporal lobe Acute Mental status change resolved Acute
--- NOTE | 2018-09-13 14:43 | ASMTCMCOM ---
PETRA Note PETRA Note Notes: Pt requested that I call his CW at the [facility], Nichole Luke ([phone]). CM left message that pt was in the hospital. Her vm stated she would be out of the office until 09/19/18. Date Signed: 09/13/2018 02:43 PM Electronically Signed By:Makayla Jeffers RN
[2018-09-13] MEDS: NICOTINE 21 MG/24 HR PATCH TD SCH (17:59)
[2018-09-13] MEDS: MELATONIN 3 MG TAB PO SCH (20:48)
[2018-09-14] MEDS: ALPRAZolam 0.25 MG TAB PO PRN ×2 (00:17→20:08)
[2018-09-14] MEDS: IPRATROPIUM/ALBUTEROL 3 ML DEYVIAL IH SCH ×4 (04:59→23:15)
[2018-09-14] MEDS: ENOXAPARIN 40 MG/0.4 ML SYR SC SCH (08:27)
[2018-09-14] MEDS: THIAMINE HCL 100 MG TAB PO SCH (08:27)
[2018-09-14] MEDS: AZITHROMYCIN 250 MG TAB PO SCH (08:29)
[2018-09-14] MEDS: predniSONE 20 MG TAB PO SCH ×2 (08:29→18:05)
[2018-09-14] MEDS: OSELTAMIVIR PHOSPHATE 75 MG CAP PO SCH ×2 (08:29→20:07)
[2018-09-14] MEDS: FLUTICASONE/SALMETER 250/50MCG DISKUS IH SCH ×2 (09:23→20:08)
--- NOTE | 2018-09-14 16:04 | HOSPPROG ---
Hospitalist Progress Note Assessment/Plan: DIAGNOSES: * Acute hypoxemic respiratory failure on chronic * Acute COPD exacerbation * Right lower lobe pneumonia, community aquired post influenza with high procalcitonin * Positive test for influenza A acutely * ongoing tobacco use * alcohol abuse * Chronic Kidney Disease, near his baseline creat at present w history of nephrectomy The patient have to some mild improvement which is encouraging at this point but still not feeling well in a from a respiratory standpoint to get back home. Plan on probable discharge in 1-2 days assuming he continues to improve. He does have a home oxygen device that he has been using at night for sleep that he will need oxygen around the clock at home at this point PLANS: * continue empiric antibiotics * continue tamiflu * continue bronchodilators and steroid * Continue flutter valve * increase activity as able * Did have lengthy discussion regarding tobacco cessation at this time SUBJECTIVE: Feels slightly better today, still with dyspnea and cough Walking low better today and eating a bit better and OBJECTIVE Vitals reviewed: Stable without fever Oxygen monitor: 85% room air saturation today, still requiring 5 L for 90% Exam: alert oriented skin warm dry color ok resps not labored at rest on 5 L oxygen lungs remain coarse bronchitic and diminished, essentially unchanged from yesterday heart regular abd soft nondistended nontender, bowel sounds present limbs warm, no edema iv site ok Microbiology data: Positive PCR for influenza A Blood cultures no growth so far still pending I reviewed images from today's repeat chest x-ray two view, there is slight increase in right lower lung infiltrates compared to the admission x-ray, no effusions or other complications Objective: Vital Signs Temp Pulse Resp BP Pulse Ox 36.8 C 86 18 132/75 H 93 09/14/18 15:09 09/14/18 15:09 09/14/18 15:09 09/14/18 15:09 09/14/18 15:09 Laboratory Results 09/13/18 04:39 09/13/18 04:39 09/13/18 09/14/18 09/15/18 06:59 06:59 06:59 Intake Total 950 Output Total 150 Balance 950 -150 PT 13.1 SEC (12.0-15.0) 09/12/18 09:01 INR 0.97 (0.83-1.16) 09/12/18 09:01 ICD10 Worksheet Patient Problems: Problems Problem Status Onset Bronchitis Acute COPD exacerbation Acute Flu Acute Hypoxemia Acute Renal insufficiency Acute COPD (chronic obstructive pulmonary disease) Acute Chronic Disease Mgmt/Transitional Care Acute Mass of left temporal lobe Acute Mental status change resolved Acute
[2018-09-14] MEDS: NICOTINE 21 MG/24 HR PATCH TD SCH (18:07)
[2018-09-14] MEDS: MELATONIN 3 MG TAB PO SCH (20:08)
[2018-09-15] MEDS: IPRATROPIUM/ALBUTEROL 3 ML DEYVIAL IH SCH ×2 (05:46→08:50)
[2018-09-15] MEDS: predniSONE 20 MG TAB PO SCH (07:59)
[2018-09-15] MEDS: THIAMINE HCL 100 MG TAB PO SCH (07:59)
[2018-09-15] MEDS: OSELTAMIVIR PHOSPHATE 75 MG CAP PO SCH (07:59)
[2018-09-15] MEDS: AZITHROMYCIN 250 MG TAB PO SCH (07:59)
[2018-09-15] MEDS: ENOXAPARIN 40 MG/0.4 ML SYR SC SCH (07:59)
[2018-09-15] MEDS: FLUTICASONE/SALMETER 250/50MCG DISKUS IH SCH (08:32)
[2018-09-15] MEDS ORDERED: MAGNESIUM HYDROXIDE 30 ML UDCUP PO PRN (09:12)
[2018-09-15] MEDS ORDERED: LACTULOSE 20 GM/30 ML UDCUP PO PRN (09:12)
[2018-09-15] MEDS ORDERED: BISACODYL 10 MG SUPP PR PRN (09:12)
[2018-09-15] MEDS ORDERED: POLYETHYLENE GLYCOL 3350 17 GM PKT PO PRN (09:12)
[2018-09-15 11:19] VITALS: BP 143/76
--- NOTE | 2018-09-15 13:36 | PDHOMEO2F ---
Home Oxygen Face to Face Home Orders: I certify that a physician or a nurse practitioner or physician's mental health assistant has had a [id number] encounter with this patient on the date of this order due to the diagnosis listed, which relates to the primary reason the patient requires home oxygen. Alternative treatments have been tried, or considered, and deemed ineffective. It is anticipated that supplemental oxygen will result in improvement with treatment. Home oxygen qualifying diagnosis: copd Home oxygen secondary diagnosis: pneumonia SpO2 on room air (%): 87 Frequency of home oxygen needed: continuous Home oxygen liters per minute: 4 Home oxygen delivery device: nasal cannula Concentrator: Yes E-tanks for mobility and back up: Yes If ordering portable O2, is the patient mobile in the home?: Yes I certify that, based on these findings, the home oxygen is medically necessary for this patient for the following length of time. Length of time home oxygen needed: 3 months
--- NOTE | 2018-09-15 14:09 | GDS ---
DISCHARGE DIAGNOSES: 1. Influenza A. 2. Community-acquired pneumonia. 3. Chronic obstructive pulmonary disease exacerbation. 4. Tobacco abuse. 5. Alcohol abuse. 6. Chronic kidney disease. HISTORY: This is a 73-year-old male presenting with weakness and shortness of breath. HOSPITAL COURSE: The patient was positive for influenza A in the emergency department. He also had a chest x-ray which showed some bronchitis. Repeat chest x-ray a few days later showed evolving righ t upper lobe, right lower lobe mild pneumonia. He was treated with antibiotics as well as Tamiflu. He also had evidence of COPD exacerbation and was treated with prednisone. He did well over the next several days. Although he is still requiring oxygen. He is ambulating and he is eating and he want s to go home. He will be discharged home to finish his course of antibiotics as well as steroids and Tamiflu and to be on home oxygen. DISPOSITION: Home. DISCHARGE MEDICATIONS: He is to continue his home medicines. In addition, he will be given Omnicef 300 mg twice daily for another 4 more days as well as Tamiflu 75 mg twice daily for several more days as well. He will also be on a prednisone taper. FOLLOWUP INSTRUCTIONS: He is instructed to follow up with his primary care doctor in 2-3 days to see if he would be fit for work at that time. TIME SPENT: Greater than 30 minute was spent on discharge. /[id number]
[2018-09-15] MEDS ORDERED: SENNOSIDES/DOCUSATE SODIUM TAB PO SCH (21:00)
== END 2018-09-15 15:46 | disposition home or self-care (01) | DRG 195 ==
LOC: OBSVTOIN 10:07 → F3E 11:17
PROVIDERS: ADMIT Internal Medicine; ATTEND Internal Medicine
DX: J10.08 Influenza due to other identified influenza virus with other specified pneumonia (principal); J44.1 Chronic obstructive pulmonary disease with (acute) exacerbation; Z72.0 Tobacco use; F10.10 Alcohol abuse, uncomplicated; N18.9 Chronic kidney disease, unspecified
CPT/HCPCS: 96374; J0696; J1650; J2405; J2930; J7512

== ENCOUNTER → 2018-09-20 | Outpatient (CLI) | payer OTHER, MEDICARE | LOC: BMCIMAGING 09:30 | PROVIDERS: ATTEND Internal Medicine | DX: J10.1 Influenza due to other identified influenza virus with other respiratory manifestations (principal) ==

== ENCOUNTER → 2018-10-29 | Outpatient (CLI) | payer OTHER, MEDICARE | LOC: BMCIMAGING 11:42 | PROVIDERS: ATTEND Internal Medicine | DX: J44.9 Chronic obstructive pulmonary disease, unspecified (principal); J40 Bronchitis, not specified as acute or chronic ==

== ENCOUNTER 2018-12-05 15:35 | Observation (INO) | payer OTHER, MEDICARE ==
[2018-12-05] MEDS ORDERED: IPRATROPIUM/ALBUTEROL 3 ML DEYVIAL IH ONE (16:35)
[2018-12-05] MEDS ORDERED: methylPREDNISolone SOD SUCC 125 MG/2 ML VIAL IVP ONE (16:35)
--- NOTE | 2018-12-05 16:38 | EDPHY ---
H & P Stated Complaint: Difficulty with breathing, 'cold-like' symptoms since Monday. Time Seen by Provider: 12/05/18 16:04 HPI/ROS: CHIEF COMPLAINT: Cough, shortness of breath HISTORY OF PRESENT ILLNESS: 73-year-old male with COPD presents with cough and shortness of breath. Onset cough and sore throat 5 days ago. The cough has been productive of yellowish sputum until today when the cough became dry. Associated with night sweats and gradually increasing shortness of breath. Shortness of breath is moderate today and increases with exertion. History of pneumonia in September 2018. 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 Pneumonia September 2018. 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 [employer] - Physical Exam Exam: General Appearance: Alert, pleasant, nontoxic-appearing Eyes: Pupils equal and round, no conjunctival pallor or injection ENT, Mouth: Mucous membranes moist Neck: Normal inspection Respiratory: Tachypneic, decreased air exchange, end expiratory wheezing Cardiovascular: Regular tachycardia Gastrointestinal: Abdomen is soft and nontender Neurological: A&O, nonfocal, normal gait Skin: Warm and dry Extremities: Normal inspection Psychiatric: Mood and affect normal Constitutional: Initial Vital Signs Temperature (C) 37.1 C 12/05/18 15:36 Heart Rate 113 H 12/05/18 15:36 Respiratory Rate 22 H 12/05/18 15:36 Blood Pressure 135/90 H 12/05/18 15:36 O2 Sat (%) 83 L 12/05/18 15:36 O2 Delivery Mode Room Air O2 (L/minute) 3 Allergies/Adverse Reactions: No Known Allergies Allergy (Verified 12/06/18 19:59) Home Medications: Medication Instructions Recorded ALPRAZolam [Xanax 0.25 MG (*)] 0.125 - 0.25 mg PO DAILY PRN 09/12/18 Fluticasone/Salmeter 250/50Mcg 1 puffs IH BID 09/12/18 [Advair 250/50 (*)] Acetaminophen [Tylenol 325mg (*)] 650 mg PO Q4HRS PRN tab 12/06/18 Albuterol [Ventolin Hfa Inhaler] 200 puffs IH Q4 #1 mdi 12/06/18 Azithromycin [Zithromax] 250 mg PO DAILY #4 tab 12/06/18 Nicotine [Nicoderm Cq 21 mg (*)] 21 mg TD DAILY patch 12/06/18 guaiFENesin [Mucinex 600 MG (*)] 1,200 mg PO BID #60 tab.er 12/06/18 predniSONE 20 mg PO DAILY #5 tablet 12/06/18 Medical Decision Making - Diagnostics Imaging Results: CXR: COPD, no infiltrate Imaging: I viewed and interpreted images myself ED Course/Re-evaluation: Patient presents with a COPD exacerbation. Initial oxygen saturation is 83% on room air and lung exam reveals decreased air exchange. A DuoNeb was given and Solu-Medrol 125 mg IV. Chest x-ray reveals no evidence of pneumonia. Will reassess. 1730: Feels better after the DuoNeb. Improved air exchange and scattered wheezing, though continues to be hypoxic and tachypneic. Albuterol neb x2 given. Hypoxia and tachypnea persist. Chest exam reveals persistent wheezing. Will admit to the hospitalist service for COPD exacerbation. The hospitalist service was consulted for admission. Differential Diagnosis: Includes does not limited to pneumonia, empyema, pulmonary edema, pulmonary embolism - Data Points Laboratory Results: Laboratory Results 12/05/18 16:23 12/05/18 16:23 Medications Given: Discontinued Medications Acetaminophen (Tylenol) 650 mg PO Q4HRS PRN PRN Reason: Pain, Mild/Fever, Can Take PO Stop: 06/03/19 19:15 Last Admin: 12/05/18 20:32 Dose: 650 mg Albuterol (Proventil Neb) 6 ml IH EDNOW ONE Stop: 12/05/18 17:33 Last Admin: 12/05/18 17:42 Dose: 6 ml Albuterol/Ipratropium (Duoneb) 3 ml IH EDNOW ONE Stop: 12/05/18 16:36 Last Admin: 12/05/18 16:51 Dose: 3 ml Albuterol/Ipratropium (Duoneb) 3 ml IH QID RIVKA Stop: 06/03/19 20:59 Last Admin: 12/06/18 09:46 Dose: 3 ml Alprazolam (Xanax) 0.125 - 0.25 mg PO DAILY PRN PRN Reason: Anxiety Stop: 06/03/19 19:18 Last Admin: 12/05/18 20:33 Dose: 0.125 mg Azithromycin (Zithromax) 500 mg PO DAILY RIVKA PRN Reason: Protocol Stop: 12/07/18 09:01 Last Admin: 12/05/18 20:32 Dose: 500 mg Guaifenesin (Mucinex) 1,200 mg PO BID [facility] Stop: 06/04/19 10:29 Last Admin: 12/06/18 12:34 Dose: 1,200 mg Methylprednisolone Sodium Succinate (Solu-Medrol) 125 mg IVP EDNOW ONE Stop: 12/05/18 16:36 Last Admin: 12/05/18 16:51 Dose: 125 mg Nicotine (Nicoderm Cq) 21 mg TD DAILY RIVKA Stop: 06/03/19 20:59 Last Admin: 12/06/18 10:00 Dose: 21 mg Prednisone (Prednisone) 40 mg PO DAILY [facility] Stop: 06/04/19 08:59 Last Admin: 12/06/18 09:59 Dose: 40 mg Fluticasone/Salmeterol (Advair) 1 puffs IH BID RIVKA Stop: 06/03/19 20:59 Last Admin: 12/06/18 09:49 Dose: Not Given Departure - Departure Disposition: [facility] Acute Clinical Impression: Chronic obstructive pulmonary disease with acute exacerbation Condition: Fair
[2018-12-05 17:08] LABS: PLATELET COUNT 136 10^3/uL (150-400)
[2018-12-05] MEDS ORDERED: ALBUTEROL 3 ML DEYVIAL IH ONE (17:32)
[2018-12-05] MEDS ORDERED: ALBUTEROL 3 ML DEYVIAL ONE (17:45)
[2018-12-05] MEDS ORDERED: ACETAMINOPHEN 325 MG TAB PO PRN (19:16)
[2018-12-05] MEDS ORDERED: ONDANSETRON DISINTEGRATING 4 MG TAB PO PRN (19:16)
[2018-12-05] MEDS ORDERED: ONDANSETRON 4 MG/2 ML VIAL IVP PRN (19:16)
[2018-12-05] MEDS ORDERED: ALBUTEROL 3 ML DEYVIAL IH PRN (19:16)
[2018-12-05] MEDS ORDERED: ALPRAZolam 0.25 MG TAB PO PRN (19:19)
--- NOTE | 2018-12-05 19:27 | PDGENHP ---
History and Physical - Chief Complaint Productive cough - History of Present Illness 73 y/o male w/ hx of COPD presents w/ productive cough (green and paulino sputum), occasional ARANDA, and one-day night sweats. 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 Denies fevers, chills, nausea, diarrhea, CP, palpitations. He does have a hx of recent pneumonia in September 2018. He does like to wear 2L NC @ night time because he reports feeling better doing so. He was able to get oxygen supplementation from his sister who . CXR w/ probable mild underlying bronchitis no acute cardiopulmonary abnormality. He is being admitted for further work-up, treatment and monitoring. 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 Always at dinner.) Drug Use: None Additional social history: Single. His "lady friend" moved to [place] and wants him to move out there but he is hesitant. Review of Systems Review of Systems: ROS: 10pt was reviewed & negative except for what was stated in HPI & below Physical Exam Physical Exam: Lab data and imaging were reviewed. WBC: 4.79 RBC/H/H: 4.67/15.1/46.8 Plt: 136 Lactic Acid: 1.3 Na: 139 K: 4.1 BUN/Cr: 15/1.2 Bicarb: 28 CXR: see HPI Temp Pulse Resp BP Pulse Ox 37.1 C 101 H 20 132/75 H 97 12/05/18 15:36 12/05/18 17:37 12/05/18 17:37 12/05/18 17:37 12/05/18 18:30 O2 (L/minute) 2 Constitutional: appears nourished, not in pain (Mildly distressed pleasant pt. Overweight.), other Eyes: PERRL, anicteric sclera, EOMI Ears, Nose, Mouth, Throat: moist mucous membranes, hearing normal, ears appear normal, no oral mucosal ulcers Cardiovascular: regular rate and rhythym, no murmur, rub, or gallop, tachycardia Peripheral Pulses: 2+: dorsalis-pedis (R) (Radial 2+), dorsalis-pedis (L) ( Radial 2+) Respiratory: reduced air movement, expiratory wheeze Gastrointestinal: normoactive bowel sounds, soft, non-tender abdomen, no palpable masses Genitourinary: no bladder fullness, no bladder tenderness Skin: warm, normal color, no rashes or abrasions, no fluctuance, no induration, No mottled Musculoskeletal: full muscle strength, no muscle tenderness, normal joint ROM, no joint effusions Neurologic: AAOx3, sensation intact bilaterally, CN II-XII Intact Psychiatric: interacting appropriately, not anxious, not encephalopathic, thought process linear Lymph, Heme, Immunologic: no cervical LAD, no supraclavicular LAD Lab Data & Imaging Review 12/05/18 16:23 12/05/18 16:23 WBC 4.79 10^3/uL (3.80-9.50) 12/05/18 16:23 RBC 4.67 10^6/uL (4.40-6.38) 12/05/18 16:23 Hgb 15.1 g/dL (13.7-17.5) 12/05/18 16:23 Hct 46.8 % (40.0-51.0) 12/05/18 16:23 MCV 100.2 fL (81.5-99.8) H 12/05/18 16:23 MCH 32.3 pg (27.9-34.1) 12/05/18 16:23 MCHC 32.3 g/dL (32.4-36.7) L 12/05/18 16:23 RDW 15.5 % (11.5-15.2) H 12/05/18 16:23 Plt Count 136 10^3/uL (150-400) L 12/05/18 16:23 MPV 9.3 fL (8.7-11.7) 12/05/18 16:23 Neut % (Auto) 62.2 % (39.3-74.2) 12/05/18 16:23 Lymph % (Auto) 16.3 % (15.0-45.0) 12/05/18 16:23 Cedar % (Auto) 18.4 % (4.5-13.0) H 12/05/18 16:23 Eos % (Auto) 2.1 % (0.6-7.6) 12/05/18 16:23 Baso % (Auto) 0.6 % (0.3-1.7) 12/05/18 16: Nucleat RBC Rel Count 0.0 % (0.0-0.2) 12/05/18 16: Absolute Neuts (auto) 2.98 10^3/uL (1.70-6.50) 12/05/18 16:23 Absolute Lymphs (auto) 0.78 10^3/uL (1.00-3.00) L 12/05/18 16:23 Absolute Monos (auto) 0.88 10^3/uL (0.30-0.80) H 12/05/18 16:23 Absolute Eos (auto) 0.10 10^3/uL (0.03-0.40) 12/05/18 16:23 Absolute Basos (auto) 0.03 10^3/uL (0.02-0.10) 12/05/18 16: Absolute Nucleated RBC 0.00 10^3/uL (0-0.01) 12/05/18 16: Immature Gran % 0.4 % (0.0-1.1) 12/05/18 16: Immature Gran # 0.02 10^3/uL (0.00-0.10) 12/05/18 16:23 VBG Lactic Acid 1.3 mmol/L (0.7-2.1) 12/05/18 16:25 Sodium 139 mEq/L (135-145) 12/05/18 16:23 Potassium 4.1 mEq/L (3.5-5.2) 12/05/18 16:23 Chloride 103 mEq/L (97-110) 12/05/18 16:23 Carbon Dioxide 28 mEq/l (22-31) 12/05/18 16:23 Anion Gap 8 mEq/L (6-14) 12/05/18 16:23 BUN 15 mg/dL (7-23) 12/05/18 16:23 Creatinine 1.2 mg/dL (0.7-1.3) 12/05/18 16:23 Estimated GFR 59 12/05/18 16:23 Glucose 76 mg/dL (70-100) 12/05/18 16:23 Calcium 9.2 mg/dL (8.5-10.4) 12/05/18 16:23 Assessment & Plan Plan: 73 y/o male w/hx of COPD, exacerbations of COPD and recent PNA presents w/ 4 days worth of productive cough and increasingly ARANDA. He continues to smoke cigarettes daily. 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 Differential diagnoses include but not limited to: COPD exacerbation, URI, PE #COPD exacerbation -Respiratory pathogen panel pending; if influenza +, give Tamiflu BID -Received IVP solu-medrol in ED; cont PO Prednisone in AM -Received Duoneb + Albuterol tx in ED; cont scheduled duoneb tx and albuterol tx PRN -Cont home advair -He has increased dyspnea and increased purulence + he is over 65 y/o indicating moderate exacerbation. For these reasons, he will be treated w/ azithromycin PO #Tachycardia: Can be present during COPD exacerbation as well as PE, however I have a low suspicion for PE right now. Will treat as stated above and continue to monitor. #Tobacco cessation: Encouraged pt to begin thinking of reducing and/or stopping tobacco use. He does wish he could stop but reports it is difficult and is not ready at this point. #Anxiety: on xanax Diet: Regular Code: DNR VTE ppx: SCDs Dispo: Admit to obs
[2018-12-05] MEDS ORDERED: NS 1,000 ML IV SCH (19:30)
--- NOTE | 2018-12-05 20:03 | HOSPPROG ---
Hospitalist Progress Note Assessment/Plan: 73M with cough, SOB hypoxic, tachypneic, decreased air movement CXR with bronchitis A/P: 1. COPD exacerbation - resp pcr pending, would - cont nebs, prednisone, hold abx for now - follow clinical course Patient seen and examined and discussed with Sofya Schneider NP. I agree with her H& P. Objective: Vital Signs Temp Pulse Resp BP Pulse Ox 37.0 C 97 18 142/85 H 97 12/05/18 19:43 12/05/18 19:43 12/05/18 19:43 12/05/18 19:43 12/05/18 19:43 ICD10 Worksheet Patient Problems: Problems Problem Status Onset Chronic obstructive pulmonary disease with acute exacerbation Acute Bronchitis Acute COPD (chronic obstructive pulmonary disease) Acute COPD exacerbation Acute Chronic Disease Mgmt/Transitional Care Acute Flu Acute Hypoxemia Acute Mass of left temporal lobe Acute Mental status change resolved Acute Renal insufficiency Acute
[2018-12-05] MEDS ORDERED: AZITHROMYCIN 250 MG TAB PO SCH (20:15)
[2018-12-05] MEDS: IPRATROPIUM/ALBUTEROL 3 ML DEYVIAL IH SCH (20:42)
[2018-12-05] MEDS: FLUTICASONE/SALMETER 250/50MCG DISKUS IH SCH (20:43)
[2018-12-05] MEDS: NICOTINE 21 MG/24 HR PATCH TD SCH (21:12)
[2018-12-06] MEDS: IPRATROPIUM/ALBUTEROL 3 ML DEYVIAL IH SCH ×2 (04:51→09:46)
[2018-12-06 05:10] LABS: PLATELET COUNT 146 10^3/uL (150-400)
[2018-12-06] MEDS ORDERED: predniSONE 20 MG TAB PO SCH (09:00)
[2018-12-06] MEDS: FLUTICASONE/SALMETER 250/50MCG DISKUS IH SCH (09:49)
[2018-12-06] MEDS: NICOTINE 21 MG/24 HR PATCH TD SCH (10:00)
[2018-12-06] MEDS ORDERED: guaiFENesin 600 MG TAB.ER PO SCH (10:30)
--- NOTE | 2018-12-06 11:54 | ASMTCAGE ---
CAGE Do you feel you ought to Answers: No cut down on your drinking or drug use? Do people annoy you by Answers: No criticizing your drinking or drug use? Do you feel guilty about Answers: No your drinking or drug use? Do you drink or use drugs Answers: No first thing in the morning (Eye Thinner Sprayer)? Additional Comments 2-3 vodka sodas/day for a total of 3 oz of vodka. Refused resources. Date Signed: 12/06/2018 11:54 AM Electronically Signed By:Teri Alba RN
--- NOTE | 2018-12-06 11:57 | ASMTCMCOM ---
CM Note CM Note Notes: 12/06/2018 Case Management Note Discussed pt during rounds. Pt admitted for COPD exacerbation. There are no therapy evals ordered today. Met w/pt. Completed CAGE. Nidaniel Muse is MDPOA per pt. Pt lives alone, is able to drive, has no challenges with obtaining groceries. Pt has not used a home care or had a SNF stay in the past. Pt has a scheduled MD appointment at the [place] office in [place] on December 18. [place] caser is Nichole Luke [phone]. Case Management d/c poc: independent with follow up as directed. Case Management available if needs change. Date Signed: 12/06/2018 11:57 AM Electronically Signed By:Teri Alba RN
--- NOTE | 2018-12-06 14:23 | HOSPPROG ---
Hospitalist Progress Note Assessment/Plan: DISCHARGE DIAGNOSES: * Acute hypoxemic respiratory failure * Acute COPD exacerbation * Possible bronchitis, no evidence of pneumonia * History of anxiety and depression currently stable * History of meningioma status post resection doing well * Peripheral neuropathy chronic stable HOSPITAL COURSE SUMMARY: This patient with past history of smoking and known COPD comes in with cough and shortness of breath. There is no fever or chest pain, no leg pain or swelling, no infiltrates on x-ray. He has some production with his cough. He was treated overnight with steroid bronchodilators and some azithromycin and had dramatic improvement overnight. Is up walking around in the hallway without any difficulty at this time. The patient does have some hypoxemia with walking but it is easily corrected with oxygen and he walks at a good pace without difficulty. At this point he is stable and seems ready for discharge to home. PENDING TEST RESULTS: None MEDICATION CHANGES: Addition of prednisone 20 mg daily for 5 days Addition of albuterol inhaler Addition of Zithromax 250 mg daily for 4 days FOLLOW-UP PLAN: With primary care as needed Greater than 35 minutes bedside and care coordination time today Objective: Vital Signs Temp Pulse Resp BP Pulse Ox 36.6 C 96 20 141/75 H 99 12/06/18 07:02 12/06/18 09:40 12/06/18 09:40 12/06/18 07:02 12/06/18 09:40 Microbiology 12/05/18 19:05 Respiratory Panel (PCR) - Final Nasal, Sinus - Swab Human Metapneumovirus Detected Laboratory Results 12/06/18 03:42 12/06/18 03:42 12/05/18 12/06/18 12/07/18 06:59 06:59 06:59 Intake Total 350 Balance 350 ICD10 Worksheet Patient Problems: Problems Problem Status Onset Chronic obstructive pulmonary disease with acute exacerbation Acute Bronchitis Acute COPD (chronic obstructive pulmonary disease) Acute COPD exacerbation Acute Chronic Disease Mgmt/Transitional Care Acute Flu Acute Hypoxemia Acute Mass of left temporal lobe Acute Mental status change resolved Acute Renal insufficiency Acute
--- NOTE | 2018-12-06 15:09 | ASMTLACE ---
LACE Length of stay for Answers: Less than 1 day current admission Acuity / Level of Answers: No Care: Did the patient have an inpatient admission? Comorbidities - select Answers: Chronic pulmonary disease all that apply Mild liver or renal disease # of Emergency department Answers: 1-2 visits in the last 6 months Social determinants Answers: Mental health diagnosis (anxiety, depression, pers onality disorders, etc.) Score: 8 Date Signed: 12/06/2018 03:08 PM Electronically Signed By:Teri Alba RN
--- NOTE | 2018-12-06 15:12 | ASDISCHSUM ---
Discharge Information Plan Status:Home with No Needs Medically Cleared to Leave:12/06/2018 Discharge Date:12/06/2018 CM D/C Disposition:Home, Routine, Self-Care ADT D/C Disposition:Home, Routine, Self-Care Projected Discharge Date:12/06/2018 Transportation at D/C: Discharge Delay Reason: Follow-Up Date:12/06/2018 Discharge Slot: Final Diagnosis: Placement Information Patient Contact Information Contact Name:ROME Relationship:Other Address:[address] City:[facility] [facility] Phone: [facility]/Zip Code:[place] [address] Email: Financial Information Financial Class:Medicare Primary Plan Desc:MEDICARE OUTPATIENT Primary Plan Number:[id number] Secondary Plan Desc:DAVID/LUCIA SUPPLEMENT Secondary Plan Number:[id number] Assessment Information LACE LACE Length of stay for Answers: Less than 1 day current admission Acuity / Level of Answers: No Care: Did the patient have an inpatient admission? Comorbidities - select Answers: Chronic pulmonary disease all that apply Mild liver or renal disease # of Emergency department Answers: 1-2 visits in the last 6 months Social determinants Answers: Mental health diagnosis (anxiety, depression, pers onality disorders, etc.) Score: 8 Date Signed: 12/06/2018 03:08 PM Electronically Signed By:Teri Alba RN CAGE Questionnaire CAGE Do you feel you ought to Answers: No cut down on your drinking or drug use? Do people annoy you by Answers: No criticizing your drinking or drug use? Do you feel guilty about Answers: No your drinking or drug use? Do you drink or use drugs Answers: No first thing in the morning (Eye Assessment Manager)? Additional Comments 2-3 vodka sodas/day for a total of 3 oz of vodka. Refused resources. Date Signed: 12/06/2018 11:54 AM Electronically Signed By:Teri Alba RN [facility] CM Progress Note CM Note CM Note Notes: 12/06/2018 Case Management Note Discussed pt during rounds. Pt admitted for COPD exacerbation. There are no therapy evals ordered today. Met w/pt. Completed CAGE. Krishan Muse is MDPOA per pt. Pt lives alone, is able to drive, has no challenges with obtaining groceries. Pt has not used a home care or had a SNF stay in the past. Pt has a scheduled MD appointment at the [place] office in [place] on December 18. [place] test case developer is Nichole Luke [phone]. Case Management d/c poc: independent with follow up as directed. Case Management available if needs change. Date Signed: 12/06/2018 11:57 AM Electronically Signed By:Teri Alba RN Case Management Discharge Plan Note Case Management Discharge Discharge Order Complete? Answers: Yes Patient to Obtain Answers: Independently Medications Transportation Arranged Answers: Family/Friends Discharge Comments Notes: 12/06/2018 Case Management note Pt to discharge independent with follow up as directed. Date Signed: 12/06/2018 03:09 PM Electronically Signed By:Teri Alba RN Intervention Information Intervention Type:*VILLEDA-Signed Date of Service:12/06/2018 09:53 AM Patient Type:Observation Staff Member:Mayra Anne Hours: Discipline: Severity: Comment:
[2018-12-06 16:28] VITALS: BP 147/78
== END 2018-12-06 16:37 | disposition home or self-care (01) ==
LOC: F2W 19:50
PROVIDERS: ADMIT Student in an Organized Health Care Education/Training Program; ATTEND Internal Medicine
DX: J44.1 Chronic obstructive pulmonary disease with (acute) exacerbation (principal); J96.01 Acute respiratory failure with hypoxia; F41.9 Anxiety disorder, unspecified; F32.9 Major depressive disorder, single episode, unspecified; G62.9 Polyneuropathy, unspecified; Z87.891 Personal history of nicotine dependence
CPT/HCPCS: 71046; 96374; 99285; G0378; J2930; J7512; J7613

== ENCOUNTER 2018-12-06 19:58 | Inpatient (IN) | payer OTHER, MEDICARE ==
--- NOTE | 2018-12-06 20:20 | EDPHY ---
H & P Time Seen by Provider: 12/06/18 20:19 HPI/ROS: HPI CHIEF COMPLAINT: Shortness of breath HISTORY OF PRESENT ILLNESS: Patient is a 73-year-old male, he presents emergency room shortness of breath. Was recently here in the emergency room yesterday admitted to the hospital for COPD exacerbation he did rather well overnight. He felt well enough to go home this morning he was ambulatory through the hospital without any difficulty. He states that he went home and felt rather well however quickly became short of breath. He now arrives back to the emergency room with worsening shortness of breath, he is tachypneic in the 30s, his room air sat was 73%. IT Is also noted he is tachycardic and febrile. Patient states he feels unwell. When I evaluated he is tachypneic, has wheezing throughout lung tello. And rhonchi. Past Medical History: History of COPD, anxiety, 2 L nasal cannula at night. Past Surgical History: No recent surgical history Social History: Smokes tobacco. Family History: ROS REVIEW OF SYSTEMS: 10 Systems were reviewed and negative with the exception of the elements mentioned in the history of present illness. Exam Constitutional respiratory distress triage nursing summary reviewed, vital signs reviewed, awake/alert. Tachycardic 115, febrile 38.4 73% room air. Eyes normal conjunctivae and sclera, EOMI, PERRLA. HENT normal inspection, atraumatic, moist mucus membranes, no epistaxis, neck supple/ no meningismus, no raccoon eyes. Respiratory respiratory distress. Cardiovascular rate normal, regular rhythm, no murmur, no edema, distal pulses normal. Gastrointestinal soft, non-tender, no rebound, no guarding, normal bowel sounds, no distension, no pulsatile mass. Genitourinary no CVA tenderness. Musculoskeletal no midline vertebral tenderness, full range of motion, no calf swelling, no tenderness of extremities, no meningismus, good pulses, neurovascularly intact. Skin pink, warm, & dry, no rash, skin atraumatic. Neurologic awake, alert and oriented x 3, AAOx3, moves all 4 extremities equally, motor intact, sensory intact, CN II-XII intact, normal cerebellar, normal vision, normal speech. Psychiatric normal mood/affect. Heme/Lymph/Immune no lymphadenopathy. Differential Diagnosis: Includes but is not limited to in a particular order COPD exacerbation, respiratory distress, pneumonia viral illness, bronchitis, sepsis, bacteremia Medical Decision Making: Plan for this patient IV establishment blood cultures due to being febrile, lactic acid, basic labs, DuoNeb breathing treatment, chest x-ray, IV Rocephin and IV azithromycin. Will admit back to the hospital. Re-evaluation: I have consult the hospitalist service Dr. Turner agrees to admit. Patient here with fever 38.4. 1 g of Tylenol given. Blood cultures pulled, lactic acid pending. Gentle IV fluids. Respiratory exam concerning for pneumonia and COPD exacerbation. IV Rocephin IV as a throat ordered. Hospitalist service consult for admission. EKG interpretation by me on record in [facility] system. Impression time of EKG 2012 sinus tachycardia rate of 114, PVCs present. No signs of acute ischemia. Chest x-ray reviewed, slight haziness in the left lung field lower aspect. But no dense pneumonia. COPD appearing lungs. Patient's lactic acid noted to be elevated at 2.9. He will receive IV fluids. Will repeat. 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 Pneumonia September 2018, Flu september 2018, JANINE. 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, CRANIOTOMY 05/12/2018, Brain tumor - Social History Smoking Status: Current every day smoker (1/2 pack of cigarettes/day) Constitutional: Initial Vital Signs O2 Sat (%) 98 12/06/18 20:13 O2 Delivery Mode Nasal Cannula O2 (L/minute) 6 Allergies/Adverse Reactions: No Known Allergies Allergy (Verified 12/06/18 19:59) Home Medications: Medication Instructions Recorded ALPRAZolam [Xanax 0.25 MG (*)] 0.125 - 0.25 mg PO DAILY PRN 09/12/18 Fluticasone/Salmeter 250/50Mcg 1 puffs IH BID 09/12/18 [Advair 250/50 (*)] Acetaminophen [Tylenol 325mg (*)] 650 mg PO Q4HRS PRN tab 12/06/18 Albuterol [Ventolin Hfa Inhaler] 2 puffs IH Q4 PRN 12/06/18 Azithromycin [Zithromax] 250 mg PO DAILY #4 tab 12/06/18 Nicotine [Nicoderm Cq 21 mg (*)] 21 mg TD DAILY patch 12/06/18 guaiFENesin [Mucinex 600 MG (*)] 1,200 mg PO BID #60 tab.er 12/06/18 predniSONE 20 mg PO DAILY #5 tablet 12/06/18 Medical Decision Making - Data Points Laboratory Results: Laboratory Results 12/06/18 20:15 12/06/18 20:15 Microbiology Results: MICROBIOLOGY 12/06/18 20:15 Blood Blood Culture - Preliminary 12/06/18 20:15 Blood Blood Culture - Preliminary Medications Given: Acetaminophen (Tylenol) 650 mg PO Q4HRS PRN PRN Reason: Pain, Mild/Fever, Can Take PO Stop: 06/04/19 21:05 Last Admin: 12/08/18 12:37 Dose: 650 mg Albuterol (Proventil Neb) 3 ml IH Q2HRS PRN PRN Reason: Short of Breath/Dyspnea Stop: 06/04/19 23:57 Last Admin: 12/07/18 02:07 Dose: 3 ml Albuterol/Ipratropium (Duoneb) 3 ml IH Q6H [facility] Stop: 06/05/19 06:29 Last Admin: 12/08/18 18:25 Dose: 3 ml Alprazolam (Xanax) 0.25 mg PO DAILY PRN PRN Reason: Anxiety Stop: 06/04/19 23:54 Last Admin: 12/09/18 01:01 Dose: 0.25 mg Azithromycin (Zithromax) 500 mg PO DAILY [facility] PRN Reason: Protocol Stop: 01/06/19 08:59 Last Admin: 12/08/18 10:16 Dose: 500 mg Benzonatate (Tessalon Pearles) 100 mg PO TID PRN PRN Reason: Cough, Moderate Stop: 06/05/19 14:30 Last Admin: 12/08/18 21:43 Dose: 100 mg Enoxaparin Sodium (Lovenox) 40 mg SC DAILY [facility] Stop: 06/05/19 08:59 Last Admin: 12/08/18 10:17 Dose: 40 mg Guaifenesin (Mucinex) 1,200 mg PO BID [facility] Stop: 06/05/19 08:59 Last Admin: 12/08/18 21:43 Dose: 1,200 mg Nicotine (Nicoderm Cq) 21 mg TD DAILY [facility] Stop: 06/05/19 08:59 Last Admin: 12/08/18 10:16 Dose: 21 mg Prednisone (Prednisone) 40 mg PO DAILY [facility] Stop: 06/05/19 08:59 Last Admin: 12/08/18 10:16 Dose: 40 mg Psyllium Hydrophilic Mucilloid (Metamucil/Konsyl) 1 each PO DAILY [facility] Stop: 06/05/19 14:29 Last Admin: 12/08/18 16:28 Dose: 1 each Fluticasone/Salmeterol (Advair) 1 puffs IH BID [facility] Stop: 06/05/19 08:59 Last Admin: 12/08/18 09:34 Dose: 1 puffs Discontinued Medications Acetaminophen (Tylenol) 1,000 mg PO EDNOW ONE Stop: 12/06/18 20:29 Last Admin: 12/06/18 20:44 Dose: 1,000 mg Albuterol/Ipratropium (Duoneb) 3 ml IH EDNOW ONE Stop: 12/06/18 20:28 Last Admin: 12/06/18 20:31 Dose: 3 ml Albuterol/Ipratropium (Duoneb) 3 ml IH Q6HRS [facility] Stop: 06/05/19 00:00 Last Admin: 12/07/18 07:36 Dose: Not Given Alprazolam (Xanax) 0.25 mg PO EDNOW ONE Stop: 12/07/18 23:46 Last Admin: 12/07/18 21:13 Dose: Not Given Azithromycin 500 mg/ Sodium (Chloride) 255 mls @ 255 mls/hr IV DAILY [facility] PRN Reason: Protocol Stop: 01/05/19 20:29 Last Admin: 12/06/18 23:04 Dose: Not Given Ceftriaxone Sodium/Dextrose (Rocephin 1 Gm (Premix)) 50 mls @ 100 mls/hr IV EDNOW ONE PRN Reason: Protocol Stop: 12/06/18 20:57 Last Admin: 12/06/18 20:45 Dose: 50 mls Azithromycin 500 mg/ Sodium (Chloride) 255 mls @ 255 mls/hr IV EDNOW ONE PRN Reason: Protocol Stop: 12/06/18 21:59 Last Admin: 12/06/18 21:00 Dose: 255 mls Sodium Chloride (Ns) 1,000 mls @ 0 mls/hr IV ONCE ONE PRN Reason: Wide Open Stop: 12/06/18 20:43 Last Admin: 12/06/18 21:00 Dose: 1,000 mls Methylprednisolone Sodium Succinate (Solu-Medrol) 125 mg IVP EDNOW ONE Stop: 12/06/18 20:25 Last Admin: 12/06/18 20:31 Dose: 125 mg Point of Care Test Results: Chemistry 12/06/18 20:21 POC Troponin I 0.01 ng/mL ng/mL (0.00-0.08) Departure - Departure Disposition: [facility] Inpatient Acute Clinical Impression: COPD (chronic obstructive pulmonary disease) Qualifiers: COPD type: unspecified COPD Qualified Code(s): J44.9 - Chronic obstructive pulmonary disease, unspecified Fever Qualifiers: Fever type: due to other condition Qualified Code(s): R50.81 - Fever presenting with conditions classified elsewhere Condition: Fair
[2018-12-06] MEDS ORDERED: methylPREDNISolone SOD SUCC 125 MG/2 ML VIAL IVP ONE (20:24)
[2018-12-06] MEDS ORDERED: IPRATROPIUM/ALBUTEROL 3 ML DEYVIAL IH ONE (20:27)
[2018-12-06] MEDS ORDERED: ACETAMINOPHEN 500 MG TAB PO ONE (20:28)
[2018-12-06] MEDS ORDERED: AZITHROMYCIN IV 500 MG in NS 250 ML IV SCH (20:30)
[2018-12-06 20:36] LABS: PLATELET COUNT 147 10^3/uL (150-400)
[2018-12-06] MEDS ORDERED: NS 1,000 ML IV ONE (20:42)
[2018-12-06 20:55] LABS: INR 0.95 (0.83-1.16); PROTIME(PATIENT) 12.3 SEC (12.0-15.0)
[2018-12-06] MEDS ORDERED: AZITHROMYCIN IV 500 MG in NS 250 ML IV ONE (21:00)
[2018-12-06] MEDS ORDERED: ACETAMINOPHEN 325 MG TAB PO PRN (21:06)
--- NOTE | 2018-12-06 23:04 | CPEKG ---
Test Reason : OPEN Blood Pressure : / mmHG Vent. Rate : 114 BPM Atrial Rate : 117 BPM P-R Int : 190 ms QRS Dur : 095 ms QT Int : 334 ms P-R-T Axes : 079 075 074 degrees QTc Int : 461 ms Sinus tachycardia Ventricular premature complexes Confirmed by Marika Eubanks ([id number]) on 12/06/2018 11:03:45 PM Referred By: Beny Gamboa Confirmed By:Marika Eubanks
[2018-12-06] MEDS: ALPRAZolam 0.25 MG TAB PO ONE (23:48)
--- NOTE | 2018-12-06 23:49 | PDGENHP ---
History and Physical - Chief Complaint fever - History of Present Illness 73o M smoker with COPD who was just discharged today returns with fever and worsening shortness of breath. He was hospitalized 12/05- for COPD exacerbation related to human metapneumoviral infection. He was weaned to 1L NC and discharged on prednisone, azithromycin and an albuterol inhaler. He hadn't even picked up his medications when he noticed that he had soaked through his shirt and felt feverish. He began to have difficulty breathing and was coughing up yellowish sputum so came to the ED where he was found to be febrile (38.4) and hypoxic requiring 5-6L NC. A chest-xray again did not demonstrate any obvious pneumonia. He was given IV ceftriaxone and azithromycin and is being admitted for further evaluation and treatment. Case discussed with ED physician Beny Gamboa. History Information - Allergies/Home Medication List Allergies/Adverse Reactions: No Known Allergies Allergy (Verified 12/06/18 19:59) Home Medications: ALPRAZolam [Xanax 0.25 MG (*)] 0.125 - 0.25 mg PO DAILY PRN 09/12/18 [Last Taken 12/06/18] Fluticasone/Salmeter 250/50Mcg [Advair 250/50 (*)] 1 puffs IH BID 09/12/18 [ Last Taken 12/05/18] Albuterol [Ventolin Hfa Inhaler] 2 puffs IH Q4 PRN 12/06/18 [Last Taken Unknown] I have personally reviewed and updated: family history, medical history, social history, surgical history - Past Medical History COPD Additional medical history: Anxiety, Depression, 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 His "lady friend" moved to [place] and wants him to move out there but he is hesitant. Review of Systems Review of Systems: ROS: 10pt was reviewed & negative except for what was stated in HPI & below Physical Exam Physical Exam: Temp Pulse Resp BP Pulse Ox 36.8 C 86 16 122/68 H 95 12/06/18 21:16 12/06/18 22:00 12/06/18 22:00 12/06/18 22:00 12/06/18 22:00 O2 (L/minute) 5 Constitutional: appears nourished, uncomfortable Eyes: PERRL, anicteric sclera Ears, Nose, Mouth, Throat: moist mucous membranes Cardiovascular: no murmur, rub, or gallop, tachycardia, No JVD, No edema Respiratory: reduced air movement, expiratory wheeze, respiratory distress, No rhonchi Gastrointestinal: normoactive bowel sounds, soft, non-tender abdomen, no palpable masses Genitourinary: no bladder fullness, no bladder tenderness Skin: warm, normal color, no rashes or abrasions, no fluctuance, no induration, No mottled Musculoskeletal: full muscle strength, no muscle tenderness, normal joint ROM, no joint effusions Neurologic: AAOx3 Psychiatric: interacting appropriately Lab Data & Imaging Review 12/06/18 20:15 12/06/18 20:15 WBC 8.54 10^3/uL (3.80-9.50) 12/06/18 20:15 RBC 5.04 10^6/uL (4.40-6.38) 12/06/18 20:15 Hgb 16.2 g/dL (13.7-17.5) 12/06/18 20:15 Hct 50.4 % (40.0-51.0) 12/06/18 20:15 MCV 100.0 fL (81.5-99.8) H 12/06/18 20:15 MCH 32.1 pg (27.9-34.1) 12/06/18 20:15 MCHC 32.1 g/dL (32.4-36.7) L 12/06/18 20:15 RDW 15.3 % (11.5-15.2) H 12/06/18 20:15 Plt Count 147 10^3/uL (150-400) L 12/06/18 20:15 MPV 9.7 fL (8.7-11.7) 12/06/18 20:15 Neut % (Auto) Not Reported 12/06/18 20:15 Lymph % (Auto) Not Reported 12/06/18 20:15 [place] % (Auto) Not Reported 12/06/18 20:15 Eos % (Auto) Not Reported 12/06/18 20:15 Baso % (Auto) Not Reported 12/06/18 20:15 Nucleat RBC Rel Count Not Reported 12/06/18 20:15 Absolute Neuts (auto) Not Reported 12/06/18 20:15 Absolute Lymphs (auto) Not Reported 12/06/18 20:15 Absolute Monos (auto) Not Reported 12/06/18 20:15 Absolute Eos (auto) Not Reported 12/06/18 20:15 Absolute Basos (auto) Not Reported 12/06/18 20:15 Absolute Nucleated RBC Not Reported 12/06/18 20:15 Immature Gran % Not Reported 12/06/18 20:15 Seg Neutrophils % 47.0 % 12/06/18 20:15 Band Neutrophils % 41.0 % 12/06/18 20:15 Lymphocytes % 8.0 % 12/06/18 20:15 Monocytes % 4.0 % 12/06/18 20:15 Eosinophils % 0.0 % 12/06/18 20:15 Basophils % 0.0 % 12/06/18 20:15 Metamyelocytes % 0.0 % 12/06/18 20:15 Myelocytes % 0.0 % 12/06/18 20:15 Promyelocytes % 0.0 % 12/06/18 20:15 Blast Cells % 0.0 % 12/06/18 20:15 Immature Gran # Not Reported 12/06/18 20:15 Absolute Seg Neuts 4.01 10^3/uL (1.70-6.50) 12/06/18 20:15 Absolute Band Neuts 3.50 10^3/uL (0.00-0.70) H 12/06/18 20:15 Absolute Lymphocytes 0.68 10^3/uL (1.00-3.00) L 12/06/18 20:15 Absolute Monocytes 0.34 10^3/uL (0.30-0.80) 12/06/18 20:15 Absolute Eosinophils 0.00 10^3/uL (0.03-0.40) L 12/06/18 20:15 Absolute Basophils 0.00 10^3/uL (0.02-0.10) L 12/06/18 20:15 Absolute Metamyelocyte 0.00 10^3/mL (0.00-0.00) 12/06/18 20:15 Absolute Myelocytes 0.00 10^3/mL (0.00-0.00) 12/06/18 20:15 Absolute Promyelocytes 0.00 10^3/uL (0.00-0.00) 12/06/18 20:15 Absolute Plasma Cells 0.00 10^3/uL (0.00-0.00) 12/06/18 20:15 Nucleated RBCs 0 /100 WBC (0-0) 12/06/18 20:15 Absolute Blast Cells 0.00 10^3/uL (0.00-0.00) 12/06/18 20:15 Plasma Cells % 0.0 % 12/06/18 20:15 Platelet Estimate DECREASED (ADEQ) L 12/06/18 20:15 Oval Macrocytes 1+ H 12/06/18 20:15 PT 12.3 SEC (12.0-15.0) 12/06/18 20:15 INR 0.95 (0.83-1.16) 12/06/18 20:15 APTT 26.1 SEC (23.0-38.0) 12/06/18 20:15 VBG Lactic Acid 2.0 mmol/L (0.7-2.1) 12/06/18 22:05 Sodium 140 mEq/L (135-145) 12/06/18 20:15 Potassium 4.8 mEq/L (3.5-5.2) 12/06/18 20:15 Chloride 105 mEq/L (97-110) 12/06/18 20:15 Carbon Dioxide 24 mEq/l (22-31) 12/06/18 20:15 Anion Gap 11 mEq/L (6-14) 12/06/18 20:15 BUN 21 mg/dL (7-23) 12/06/18 20:15 Creatinine 1.2 mg/dL (0.7-1.3) 12/06/18 20:15 Estimated GFR 59 12/06/18 20:15 Glucose 159 mg/dL (70-100) H 12/06/18 20:15 Calcium 9.7 mg/dL (8.5-10.4) 12/06/18 20:15 POC Troponin I 0.01 ng/mL (0.00-0.08) 12/06/18 20:21 NT-Pro-B Natriuret Pep 631 pg/mL (0-125) H 12/06/18 20:15 Interpretation: CXR: hyperinflated lungs, no effusion or infiltrate, no heart failure (interp by me) EKG additional interpertation: ECG: sinus tachycardia, PVCs, no acute ischemia or injury Assessment & Plan Assessment: 73o M just discharged today after being treated for COPD exacerbation related to human metapneumovirus returns with fever and worsening shortness of breath found to be hypoxic. Plan: #Acute hypoxemic respiratory failure: Increased wob, hypoxic. Suspect related to bronchospasm/copd and viral infection. His CXR does not demonstrate a pneumonia and have a low clinical suspicion for PE. - Mgmt per below, wean O2 as able - Mucinex - Stop ceftriaxone #Acute COPD exacerbation: Viral trigger - Scheduled duonebs, prednisone 40mg/d, azithromycin PO - Continue home advair #Human metapneumoviral infection #SIRS physiology: I think this is viral mediated. Follow up blood cultures. #Tobacco use: Nicotine patch #Anxiety: On xanax VTE ppx: LMWH Code: DNR Dispo: Admit as inpatient to step down unit given his oxygen requirement
[2018-12-06] MEDS ORDERED: ALBUTEROL 3 ML DEYVIAL IH PRN (23:58)
[2018-12-07] MEDS: IPRATROPIUM/ALBUTEROL 3 ML DEYVIAL IH SCH ×6 (03:01→23:30)
[2018-12-07 06:35] LABS: PLATELET COUNT 135 10^3/uL (150-400)
[2018-12-07] MEDS ORDERED: AZITHROMYCIN IV 500 MG in NS 250 ML IV SCH (09:00)
[2018-12-07] MEDS: NICOTINE 21 MG/24 HR PATCH TD SCH (09:57)
[2018-12-07] MEDS: ALPRAZolam 0.25 MG TAB PO PRN ×2 (09:58→16:53)
[2018-12-07] MEDS: AZITHROMYCIN 250 MG TAB PO SCH (09:58)
[2018-12-07] MEDS: predniSONE 20 MG TAB PO SCH (10:19)
[2018-12-07] MEDS: guaiFENesin 600 MG TAB.ER PO SCH ×2 (10:19→21:18)
[2018-12-07] MEDS: ENOXAPARIN 40 MG/0.4 ML SYR SC SCH (10:19)
--- NOTE | 2018-12-07 10:54 | PDMN ---
Medical Necessity Medical necessity: Pt meets IP criteria per MD & MCG M-100; est los >2 mn for eval/tx of COPD exacerbation r/t human metapneumoviral infection w/acute hypoxemic respiratory failure (requiring 6L O2 to maintain sats >90), worsening shortness of breath, sputum production, tachypnea & fever; admit for further monitoring & respiratory supportive care; hx discharged from hospital 12/06 for COPD exacerbation; per H&P & order 12/06/18
--- NOTE | 2018-12-07 11:18 | HOSPPROG ---
Hospitalist Progress Note Assessment/Plan: 73 yo M w copd here w dyspnea, copd exacerbation 2/2 human metapneumonvirus infection metapneumovirus- supportive care copd exacerabation: received IV steroids in ER continue pred/azith/nebs AHRF: i suspect he has needed 02 for years curently on 3 L proph: lmwh dispo: inpt Subjective: cxr w no infiltrate, copd (interp by me) Objective: Vital Signs Temp Pulse Resp BP Pulse Ox 36.8 C 103 H 20 121/79 H 93 12/07/18 10:00 12/07/18 10:00 12/07/18 10:00 12/07/18 10:00 12/07/18 10:00 Laboratory Results 12/07/18 06:10 12/07/18 06:10 PT 12.3 SEC (12.0-15.0) 12/06/18 20:15 INR 0.95 (0.83-1.16) 12/06/18 20:15 - Physical Exam Constitutional: no apparent distress, appears nourished Eyes: PERRL, anicteric sclera Ears, Nose, Mouth, Throat: moist mucous membranes, hearing normal Cardiovascular: regular rate and rhythym, no murmur, rub, or gallop Respiratory: no respiratory distress, other (prolonged expiratory phase, decreased breath sounds, no wheeze) Gastrointestinal: normoactive bowel sounds, soft, non-tender abdomen Genitourinary: No baum in urethra Skin: warm, normal color Musculoskeletal: full muscle strength ICD10 Worksheet Patient Problems: Problems Problem Status Onset COPD (chronic obstructive pulmonary disease) Acute Fever Acute Bronchitis Acute COPD exacerbation Acute Chronic Disease Mgmt/Transitional Care Acute Chronic obstructive pulmonary disease with acute exacerbation Acute Flu Acute Hypoxemia Acute Mass of left temporal lobe Acute Mental status change resolved Acute Renal insufficiency Acute
[2018-12-07] MEDS: FLUTICASONE/SALMETER 250/50MCG DISKUS IH SCH ×2 (13:26→20:24)
[2018-12-07] MEDS: PSYLLIUM METAMUCIL 1 PKT PO SCH (15:08)
--- NOTE | 2018-12-07 15:20 | ASMTCMCOM ---
CM Note CM Note Notes: Patient presented to ED after being d/c'ed earlier in day w c/o worsening SOB. He had been treated for a COPD exacerbation and d/c'ed w RX for steroids and abx. Now here for continued tx with the above. He may need home O2. PT eval also ordered. Case Management will follow. Current CM discharge plan: TBD Date Signed: 12/07/2018 03:19 PM Electronically Signed By:Jody Green RN
[2018-12-07] MEDS: BENZONATATE 100 MG CAP PO PRN ×2 (16:53→21:18)
[2018-12-07] MEDS: ALPRAZolam 0.25 MG TAB PO ONE (21:13)
[2018-12-08] MEDS: IPRATROPIUM/ALBUTEROL 3 ML DEYVIAL IH SCH ×4 (05:23→22:40)
[2018-12-08] MEDS: FLUTICASONE/SALMETER 250/50MCG DISKUS IH SCH ×2 (09:34→22:45)
--- NOTE | 2018-12-08 09:59 | HOSPPROG ---
Hospitalist Progress Note Assessment/Plan: Patient is new to my care today. Briefly, a 73yo male with COPD exacerbation due to Human metampneumovirus #COPD exacerbation: due to viral URI; supportive care. norma Kaiser, aurelio #Metapneumovirus- supportive care #AHRF: suspect chronic for him. Now on 3L #Tobacco dependence: counseled on cessation #DVT ppx: Lovenox Disp: inpatient admission for Duonebs Subjective: SOB with exertion to bathroom Objective: Vital Signs Temp Pulse Resp BP Pulse Ox 36.5 C 78 16 103/54 L 100 12/08/18 07:47 12/08/18 07:47 12/08/18 07:47 12/08/18 07:47 12/08/18 07:47 Laboratory Results 12/07/18 06:10 12/07/18 06:10 12/07/18 12/08/18 12/09/18 05:59 05:59 05:59 Intake Total 850 Output Total 1675 Balance -825 PT 12.3 SEC (12.0-15.0) 12/06/18 20:15 INR 0.95 (0.83-1.16) 12/06/18 20:15 - Time Spent With Patient Time Spent with Patient: greater than 35 minutes Time Spent with Patient: Greater than 35 minutes spent on this patients care, greater than 50% of time spent counseling, educating, and coordinating care regarding the above mentioned plan. - Physical Exam Constitutional: no apparent distress Eyes: PERRL Ears, Nose, Mouth, Throat: moist mucous membranes Cardiovascular: regular rate and rhythym Respiratory: other (poor air movement througout; very tight), No inspiratory crackles Genitourinary: no bladder fullness Skin: warm Musculoskeletal: full muscle strength Neurologic: AAOx3, CN II-XII Intact Psychiatric: interacting appropriately ICD10 Worksheet Patient Problems: Problems Problem Status Onset COPD (chronic obstructive pulmonary disease) Acute Fever Acute Bronchitis Acute COPD exacerbation Acute Chronic Disease Mgmt/Transitional Care Acute Chronic obstructive pulmonary disease with acute exacerbation Acute Flu Acute Hypoxemia Acute Mass of left temporal lobe Acute Mental status change resolved Acute Renal insufficiency Acute
[2018-12-08] MEDS: predniSONE 20 MG TAB PO SCH (10:16)
[2018-12-08] MEDS: AZITHROMYCIN 250 MG TAB PO SCH (10:16)
[2018-12-08] MEDS: NICOTINE 21 MG/24 HR PATCH TD SCH (10:16)
[2018-12-08] MEDS: ENOXAPARIN 40 MG/0.4 ML SYR SC SCH (10:17)
[2018-12-08] MEDS: guaiFENesin 600 MG TAB.ER PO SCH ×2 (10:17→21:43)
[2018-12-08] MEDS: BENZONATATE 100 MG CAP PO PRN ×2 (16:28→21:43)
[2018-12-08] MEDS: PSYLLIUM METAMUCIL 1 PKT PO SCH (16:28)
[2018-12-09] MEDS: ALPRAZolam 0.25 MG TAB PO PRN ×2 (01:01→21:01)
[2018-12-09] MEDS: IPRATROPIUM/ALBUTEROL 3 ML DEYVIAL IH SCH ×4 (05:36→21:46)
[2018-12-09] MEDS: NICOTINE 21 MG/24 HR PATCH TD SCH (08:30)
[2018-12-09] MEDS: PSYLLIUM METAMUCIL 1 PKT PO SCH (08:31)
[2018-12-09] MEDS: guaiFENesin 600 MG TAB.ER PO SCH ×2 (08:32→20:51)
[2018-12-09] MEDS: predniSONE 20 MG TAB PO SCH (08:32)
[2018-12-09] MEDS: AZITHROMYCIN 250 MG TAB PO SCH (08:32)
[2018-12-09] MEDS: ENOXAPARIN 40 MG/0.4 ML SYR SC SCH (08:33)
[2018-12-09] MEDS: FLUTICASONE/SALMETER 250/50MCG DISKUS IH SCH ×2 (08:35→21:49)
--- NOTE | 2018-12-09 08:38 | HOSPPROG ---
Hospitalist Progress Note Assessment/Plan: Patient is new to my care today. Briefly, a 73yo male with COPD exacerbation due to Human metampneumovirus #COPD exacerbation: due to viral URI; supportive care. Job, pred, nebs (Day 4) -walked unit without significant difficulty. DC on oxygen, neb treatments #Metapneumovirus- supportive care #AHRF: suspect chronic for him. Now on 3L #Tobacco dependence: counseled on cessation #DVT ppx: Lovenox Disp: DC today Subjective: throat a little sore this morning. Breathing easier. " I want to go home" Objective: Vital Signs Temp Pulse Resp BP Pulse Ox 36.4 C 107 H 11 L 116/75 97 12/09/18 08:00 12/09/18 08:00 12/09/18 08:00 12/09/18 08:00 12/09/18 08:00 Laboratory Results 12/07/18 06:10 12/07/18 06:10 12/08/18 12/09/18 12/10/18 05:59 05:59 05:59 Intake Total 850 1800 Output Total 1675 1250 Balance -825 550 PT 12.3 SEC (12.0-15.0) 12/06/18 20:15 INR 0.95 (0.83-1.16) 12/06/18 20:15 - Time Spent With Patient Time Spent with Patient: greater than 35 minutes Time Spent with Patient: Greater than 35 minutes spent on this patients care, greater than 50% of time spent counseling, educating, and coordinating care regarding the above mentioned plan. - Physical Exam Eyes: PERRL Ears, Nose, Mouth, Throat: moist mucous membranes Cardiovascular: regular rate and rhythym Respiratory: reduced air movement, expiratory wheeze, other (moving more air today) Gastrointestinal: normoactive bowel sounds Genitourinary: no bladder fullness Skin: warm Musculoskeletal: full muscle strength Neurologic: AAOx3, CN II-XII Intact Psychiatric: interacting appropriately ICD10 Worksheet Patient Problems: Problems Problem Status Onset COPD (chronic obstructive pulmonary disease) Acute Fever Acute Bronchitis Acute COPD exacerbation Acute Chronic Disease Mgmt/Transitional Care Acute Chronic obstructive pulmonary disease with acute exacerbation Acute Flu Acute Hypoxemia Acute Mass of left temporal lobe Acute Mental status change resolved Acute Renal insufficiency Acute
--- NOTE | 2018-12-09 10:11 | PDHOMEO2F ---
Home Oxygen Face to Face Home Orders: I certify that a physician or a nurse practitioner or physician's bankruptcy legal assistant has had a [id number] encounter with this patient on the date of this order due to the diagnosis listed, which relates to the primary reason the patient requires home oxygen. Alternative treatments have been tried, or considered, and deemed ineffective. It is anticipated that supplemental oxygen will result in improvement with treatment. Home oxygen qualifying diagnosis: Acute on chronic hyoxemic resp failure Home oxygen secondary diagnosis: COPD exacerbation SpO2 on room air (%): 81 Frequency of home oxygen needed: with activity Home oxygen liters per minute: 3 Home oxygen delivery device: nasal cannula Concentrator: Yes E-tanks for mobility and back up: Yes If ordering portable O2, is the patient mobile in the home?: Yes I certify that, based on these findings, the home oxygen is medically necessary for this patient for the following length of time. Length of time home oxygen needed: 99 years
[2018-12-09] MEDS ORDERED: NS 1,000 ML IV SCH (12:00)
--- NOTE | 2018-12-09 12:16 | ASMTCMCOM ---
CM Note CM Note Notes: Met with Pt to discuss discharge planning. Pt is refusing to have RT order home O2 because his has some and uses it when he needs it. I asked how he was going to get home, he said, drive and would use O2 once he got home. I told the Pt he needed O2 on all the time (during transport and home). Pt said he had a friend coming to stay with him for a couple of days to help. I discussed this with the RN and Dr Kurtz. spoke with Pt again and Pt agreed to let RT setting up home O2, and his friend will pick him up tomorrow. Pt is not feeling well at this time, so IVF will start and Pt will d/c him tomorrow. Discussed w NISHI Rutherford to make sure his friend will pick him up. CM Available for need. PLAN: HOME: Independently with O2. Date Signed: 12/09/2018 12:14 PM Electronically Signed By:Brittney Chawla
--- NOTE | 2018-12-09 15:11 | GDS ---
[f rep st] DISCHARGE SUMMARY DISCHARGE DIAGNOSES: 1. COPD exacerbation/metapneumovirus. 2. Acute on suspected chronic hypoxemic respiratory failure. 3. Tobacco dependence. HISTORY OF PRESENT ILLNESS: A 73-year-old male with tobacco dependence, COPD, who was hospitalized 12/05 through 12/06 for COPD exacerbation related to human metapneumovirus. He was weaned to 1 L and discharged home on prednisone and azithromycin. He had not picked up his medications when he soaked through his shirt with sweat and was feverish. He had difficulty breathing. In the ER, he was febrile to 38.4 and was requiring 5 to 6 L. HOSPITAL COURSE BY PROBLEM: 1. Acute on likely chronic hypoxemic respiratory failure: He had increased work of breathing and hypoxia secondary to COPD exacerbation in the setting of human metapneumovirus. He will be discharged on 3 L oxygen 10/04 and to complete prednisone and azithromycin. Also prescribed nebulizer treatments. 2. Human metapneumovirus: Supportive care. 3. Acute COPD exacerbation: plan as above. 4. SIRS: Secondary to virus. This resolved. Cultures remain negative. 5. Tobacco dependence. Nicotine patch. 6. Anxiety: Xanax. DISPOSITION: Patient is stable for discharge home with a friend. NEW MEDICATIONS: Azithromycin, prednisone, oxygen. FOLLOWUP: 1. Primary care physician. 2. Referral to waterworks operator. Time spent on discharge greater than 30 minutes bedside, counseling patient on followup treatment plan. /[id number]/MODL MTDD
[2018-12-09] MEDS ORDERED: POLYETHYLENE GLYCOL 3350 17 GM PKT PO PRN (17:39)
[2018-12-09] MEDS ORDERED: BISACODYL 10 MG SUPP PR PRN (17:39)
[2018-12-09] MEDS ORDERED: LACTULOSE 20 GM/30 ML UDCUP PO PRN (17:39)
[2018-12-09] MEDS ORDERED: MAGNESIUM HYDROXIDE 30 ML UDCUP PO PRN (17:39)
[2018-12-09] MEDS: SENNOSIDES/DOCUSATE SODIUM TAB PO SCH (20:51)
[2018-12-09] MEDS: BENZONATATE 100 MG CAP PO PRN (21:01)
[2018-12-10] MEDS: IPRATROPIUM/ALBUTEROL 3 ML DEYVIAL IH SCH ×2 (05:35→10:34)
[2018-12-10] MEDS: ENOXAPARIN 40 MG/0.4 ML SYR SC SCH (09:17)
[2018-12-10] MEDS: guaiFENesin 600 MG TAB.ER PO SCH (09:17)
[2018-12-10] MEDS: AZITHROMYCIN 250 MG TAB PO SCH (09:18)
[2018-12-10] MEDS: predniSONE 20 MG TAB PO SCH (09:18)
[2018-12-10] MEDS: NICOTINE 21 MG/24 HR PATCH TD SCH (09:18)
[2018-12-10] MEDS: SENNOSIDES/DOCUSATE SODIUM TAB PO SCH (09:18)
[2018-12-10] MEDS: PSYLLIUM METAMUCIL 1 PKT PO SCH (09:18)
[2018-12-10] MEDS: FLUTICASONE/SALMETER 250/50MCG DISKUS IH SCH (09:18)
[2018-12-10 11:27] VITALS: BP 143/85
--- NOTE | 2018-12-10 13:59 | GDS ---
[f rep st] DISCHARGE SUMMARY HOSPITAL COURSE: Briefly, a 73-year-old male with COPD, still smoking, presenting with COPD exacerbation, secondary to human metapneumovirus. Please see discharge summary dated yesterday. He stayed overnight, because was feeling more breathless yesterday afternoon. He is clinically improved today and completed course of Azithromycin/prednisone. Discharge home with oxygen and DuoNeb. DISPOSITION: Patient is stable for discharge home. NEW MEDICATIONS: DuoNeb. FOLLOW UP: 1. Dr. Laurent. 2. Referral to Pulmonology. PHYSICAL EXAMINATION: VITAL SIGNS: Temperature 36.7 blood pressure 143/85, heart rate in the 80s, respirations 16, 93% on 2 L. GENERAL: He is well appearing in no acute distress. HEENT: PERRLA. Moist mucous membranes. CV: Regular rhythm. LUNGS: Mildly improved air movement. No crackles or wheezes. ABDOMEN: Soft, nontender. MUSCULOSKELETAL: 5/5 upper lower extremity strength. NEURO: 2 through 12 intact. PSYCH: Alert and oriented x3. Time spent on discharge greater than 30 minutes coordinating oxygen and at bedside with patient counseling on followup plan and smoking cessation. /[id number]/MODL MTDD
== END 2018-12-10 14:57 | disposition home or self-care (01) | DRG 189 ==
LOC: OBSVTOIN 21:07 → F2W 12-07 12:20
PROVIDERS: ADMIT Internal Medicine; ATTEND Internal Medicine
DX: J96.21 Acute and chronic respiratory failure with hypoxia (principal); J44.1 Chronic obstructive pulmonary disease with (acute) exacerbation; J06.9 Acute upper respiratory infection, unspecified; B97.81 Human metapneumovirus as the cause of diseases classified elsewhere; F17.210 Nicotine dependence, cigarettes, uncomplicated; Z99.81 Dependence on supplemental oxygen; F41.9 Anxiety disorder, unspecified; Z85.840 Personal history of malignant neoplasm of eye; Z85.820 Personal history of malignant melanoma of skin
CPT/HCPCS: 84484-ER; 96374; 97161-GP; G0378; J0456; J0696; J1650; J2930; J7512; J7613